=== PATIENT | male | born 1945 | race Caucasian/White ===

== ENCOUNTER 2016-10-09 09:37 | Outpatient (CLI) | payer MEDICARE, BC | END 2016-10-09 09:38 | disposition home or self-care (01) | DX: I10 Essential (primary) hypertension (principal); R97.20 Elevated prostate specific antigen [PSA]; F32.9 Major depressive disorder, single episode, unspecified; Z79.899 Other long term (current) drug therapy; E78.2 Mixed hyperlipidemia ==

== ENCOUNTER 2016-11-06 08:12 | Outpatient (CLI) | payer MEDICARE, BC ==
[2016-11-06] MEDS ORDERED: IOPAMIDOL-300 50 ML VIAL PO ONE (09:48)
[2016-11-06] MEDS ORDERED: IOPAMIDOL-300 100 ML VIAL IVP ONE (09:48)
--- NOTE | 2016-11-06 19:43 | CT Report ---
CONTRAST-ENHANCED CT OF THE ABDOMEN AND PELVIS: 11/06/2016 CLINICAL HISTORY: Acquired cyst of the kidney. COMPARISON: 06/03/2015 TECHNIQUE: Contrast-enhanced CT exam of the abdomen and pelvis was done; Isovue -300 was utilized as a contrast agent. No oral contrast was utilized. FINDINGS: Lower lung valdez demonstrate some mild atelectasis in the right middle lobe. Small hiatal hernia is seen in the inferior mediastinum. Liver demonstrates a 3.5 cm benign cyst in the lateral posterior aspect of the right lobe. This lesion has CT numbers of 18.5. It is reduced in size as compared to preceding exam. A second benign cyst is noted in the anterior aspect of the left lobe of the liver measuring 2.4 cm in diameter, having CT numbers of 7. This is unchanged as compared to preceding exam. Spleen appears normal. Pancreas appears normal. Gallbladder shows no wall thickening. Common hepatic and common bile ducts appear normal. Adrenal glands are normal. A well-circumscribed cystic lesion with slightly thickened ibarra is once again seen extending from the upper pole of the left kidney. It measures 1.9 cm. It appears slightly increased by 0.4 cm since preceding exam dated 06/03/2015. Its CT number on contrast-enhanced study is 29. There are two smaller hypodense lesions within the left kidney. These are more evident on today's exam because of the contrast-enhanced study. They probably represent benign cysts. Right kidney demonstrates a 2.1 cm by 2 cm slightly hypodense mass extending from the lateral aspect of the mid portion of this kidney. This finding is not significantly changed in size as compared to preceding exam. It may represent a hyperdense cyst. There is a septated cyst extending from the inferior pole of the right kidney measuring 2.6 cm by 3 cm. This finding is not significantly changed as compared to preceding exam. The pyelocalyceal systems and ureters remain unchanged. Bladder shows no intrinsic abnormality. Patient's prostate is significantly enlarged. The prostate produces a prominent indentation on the inferior aspect of the bladder. It also elevates the base of the bladder. Prostate on today's exam measures 6.8 cm by 6.8 cm by 7.3 cm. Its size is not significantly changed as compared to preceding exam. Periaortic and pericaval region showed no significant adenopathy. Surgical clip is seen along the medial aspect of the cecum related to prior appendectomy. Large cystic structure is seen in the posterior subcutaneous soft tissues within the midline. This measures 4.3 cm by 5.6 cm. It does not communicate with the spine. It is unchanged as compared to preceding exam and has CT numbers of 2.3. IMPRESSION: 1. NO SIGNIFICANT CHANGE IS NOTED COMPARED TO 06/03/2015. 2. SMALL HIATAL HERNIA IS NOTED. 3. TWO BENIGN LIVER CYSTS ARE SEEN, ONCE AGAIN. THEY MEASURE 3.5 CM AND 2.2 CM , RESPECTIVELY. 4. RIGHT KIDNEY ONCE AGAIN DEMONSTRATES A 2 CM BY 2.2 CM PROBABLE HYPERDENSE CYST EXTENDING FROM ITS LATERAL ASPECT. THERE IS ALSO A SEPTATED CYST EXTENDING FROM ITS INFERIOR ASPECT MEASURING 3 CM BY 2.6 CM. THESE LESIONS SHOW NO CHANGE. THEY MOST LIKELY ARE OF BENIGN ETIOLOGY. RECOMMEND THEY CONTINUE TO BE FOLLOWED WITH A NONCONTRAST, CONTRAST-ENHANCED CT EXAM OF THE URINARY TRACT IN 1 YEAR TO FURTHER CONFIRM THIS BENIGN ETIOLOGY. 5. SEVERAL SMALL HYPODENSE LESIONS ARE ONCE AGAIN NOTED IN THE LEFT KIDNEY. THE LARGEST OF THESE MEASURES 2 CM IN DIAMETER AND EXTENDS FROM ITS UPPER POLE. THIS LESION CONTINUES TO SHOW A MILDLY THICKENED WALL. IT MAY REPRESENT A BENIGN CYST BUT RECOMMEND NONCONTRAST, CONTRAST-ENHANCED CT EXAM OF THE URINARY TRACT IN 1 YEAR TO FURTHER CONFIRM THIS BENIGN ETIOLOGY. 6. A 5.6 CM BY 4.3 CM BENIGN CYSTIC STRUCTURE IS ONCE AGAIN NOTED IN THE POSTERIOR SUBCUTANEOUS SOFT TISSUES WITHIN THE MIDLINE. THIS CYSTIC STRUCTURE DOES NOT COMMUNICATE WITH THE SPINE. In accordance with CT protocol optimization, one or more of the following dose reduction techniques were utilized for this exam: automated exposure control, adjustment of mA and/or KV based on patient size, or use of iterative reconstructive technique. JOB #: [id number] EXT JOB #: [id number] JOSE LUIS
== END 2016-11-06 08:13 | disposition home or self-care (01) ==
LOC: DI 08:12
PROVIDERS: ATTEND Physician Assistant Medical
DX: K76.89 Other specified diseases of liver (principal); N28.9 Disorder of kidney and ureter, unspecified; K44.9 Diaphragmatic hernia without obstruction or gangrene; Z90.89 Acquired absence of other organs
CPT/HCPCS: 74177; Q9967

== ENCOUNTER 2016-11-13 11:17 | Outpatient (CLI) | payer MEDICARE, BC ==
--- NOTE | 2016-11-13 14:08 | Ultrasound Report ---
RENAL ULTRASOUND: 11/13/2016 CLINICAL INDICATION: Cyst. COMPARISON: CT 11/06/2016. TECHNIQUE: Real-time scanning was performed with accounting representative static images obtained. FINDINGS: The right kidney measures 12.1 x 6.3 x 5.4 cm. Resistive indices vary from 0.65 to 0.97. Cortical cysts are noted. No solid renal mass is seen. N hydronephrosis is present. The left kidney measures 12.4 x 5.6 x 5.2 cm. Resistive indices vary from 0.70 to 0.73. Cortical cy sts are noted, measuring up to 2.4 cm. No solid renal lesion is seen. No hydronephrosis. Pre void, the bladder measures 9.3 x 8.3 x 5.9 cm, yielding a prevoid volume of 240 mL. Postvoid res idual is 50 mL. Bilateral ureteral jets are seen. The bladder wall appears normal. IMPRESSION: 1. BILATERAL RENAL CYSTS. NO SOLID RENAL LESION OR HYDRONEPHROSIS. 2. A 50 ML POSTVOID RESIDUAL. JOB #: [id number] EXT JOB #:[id number]
== END 2016-11-13 11:18 | disposition home or self-care (01) ==
LOC: DI 11:17
PROVIDERS: ATTEND Physician Assistant Medical
DX: R10.31 Right lower quadrant pain (principal); Z90.89 Acquired absence of other organs; Q61.02 Congenital multiple renal cysts
CPT/HCPCS: 76770

== ENCOUNTER 2017-02-06 09:17 | Outpatient (CLI) | payer MEDICARE, BC ==
[2017-02-06 09:47] LABS: BASOPHILS % (AUTO) 0.6 %; EOSINOPHILS # (AUTO) 0.3 10^3/uL (0.0-0.7); EOSINOPHILS % (AUTO) 4.8 %; HCT - HEMATOCRIT 40.4 % (42.0-52.0); HGB - HEMOGLOBIN 13.8 g/dL (14.0-18.0); LYMPHOCYTES # (AUTO) 1.7 10^3/uL (1.5-3.5); LYMPHOCYTES % (AUTO) 29.1 %; MEAN CORPUSCULAR HEMOGLOBIN 26.6 pg (27.0-31.0); MEAN CORPUSCULAR HGB CONC 34.1 g/dL (32.0-36.0); MEAN CORPUSCULAR VOLUME 77.9 fL (80.0-94.0); MEAN PLATELET VOLUME 7.3 fL (7.4-11.4); MONOCYTES # (AUTO) 0.4 10^3/uL (0.0-1.0); MONOCYTES % (AUTO) 6.9 %; NEUTROPHILS # (AUTO) 3.5 10^3/uL (1.5-6.6); NEUTROPHILS % (AUTO) 58.6 %; NUCLEATED RED BLOOD CELLS AUTO 0.1 /100WBC; RED BLOOD COUNT 5.19 10^6/uL (4.70-6.10); RED CELL DISTRIBUTION WIDTH 15.1 % (12.0-15.0); UNCORRECTED WHITE BLOOD COUNT 5.9 x10^3/uL; WHITE BLOOD COUNT 5.9 x10^3/uL (4.8-10.8)
[2017-02-06 10:09] LABS: CHOL/HDL RATIO 4.2 (<5.0); CHOLESTEROL 167 mg/dL; GLUCOSE,FASTING 109 mg/dL (70-100); HDL CHOLESTEROL 40 mg/dL; HEMOGLOBIN A1C 0.59 g/dL; LDL/HDL RATIO 2.2 (<3.6); TRIGLYCERIDES 188 mg/dL; VLDL CHOLESTEROL 38 mg/dL
== END 2017-02-06 09:18 | disposition home or self-care (01) ==
LOC: LAB 09:17
PROVIDERS: ATTEND Internal Medicine
DX: E78.2 Mixed hyperlipidemia (principal); Z72.89 Other problems related to lifestyle; R73.9 Hyperglycemia, unspecified; D64.9 Anemia, unspecified; Z79.899 Other long term (current) drug therapy; E55.9 Vitamin D deficiency, unspecified
CPT/HCPCS: 36415; 80061; 82306; 82728; 82947; 83036; 85025; 86803

== ENCOUNTER 2017-08-14 11:27 | Outpatient (CLI) | payer MEDICARE, BC | END 2017-08-14 11:28 | disposition home or self-care (01) | LOC: SC 11:27 | PROVIDERS: ADMIT Orthopaedic Surgery; ATTEND Nurse Practitioner Family | DX: G47.33 Obstructive sleep apnea (adult) (pediatric) (principal) | CPT/HCPCS: 99214; G0463; 99212 ==

== ENCOUNTER 2017-10-17 08:00 | Outpatient (CLI) | payer MEDICARE, BC ==
[2017-10-17 14:01] LABS: ALBUMIN 4.6 g/dL (3.2-5.5); ALBUMIN/GLOBULIN RATIO 1.8 (1.0-2.2); ALKALINE PHOSPHATASE 36 IU/L (42-121); ALT ALANINE AMINOTRANSFERASE 22 IU/L (10-60); AST ASPARTATE AMINOTRANSFERASE 21 IU/L (10-42); BILIRUBIN,TOTAL 0.5 mg/dL (0.2-1.0); BUN - BLOOD UREA NITROGEN 22 mg/dL (6-20); CALCIUM 9.2 mg/dL (8.5-10.3); CARBON DIOXIDE - CO2 26 mmol/L (21-32); CHLORIDE 104 mmol/L (101-111); CHOL/HDL RATIO 4.4 (<5.0); CHOLESTEROL 172 mg/dL; CREATININE 0.9 mg/dL (0.6-1.2); GFR - MDRD 83 (>89); GLUCOSE 99 mg/dL (70-100); HDL CHOLESTEROL 39 mg/dL; LDL CHOLESTEROL,CALCULATED 98 mg/dL; LDL/HDL RATIO 2.5 (<3.6); SODIUM 137 mmol/L (135-145); TOTAL PROTEIN 7.2 g/dL (6.7-8.2); VLDL CHOLESTEROL 35 mg/dL
[2017-10-17 15:31] LABS: THYROID STIMULATING HORMONE 1.92 uIU/mL (0.34-5.60)
== END 2017-10-17 08:01 | disposition home or self-care (01) ==
LOC: LAB.R 08:00
PROVIDERS: ATTEND Physician Assistant Medical
DX: R41.89 Other symptoms and signs involving cognitive functions and awareness (principal); F32.9 Major depressive disorder, single episode, unspecified; D64.9 Anemia, unspecified; I10 Essential (primary) hypertension; E78.4 Other hyperlipidemia; Z79.899 Other long term (current) drug therapy
CPT/HCPCS: 80053; 80061; 82306; 82607; 82728; 83721; 84443

== ENCOUNTER 2017-10-22 09:40 | Outpatient (CLI) | payer MEDICARE, BC ==
[2017-10-22 10:06] LABS: BASOPHILS % (AUTO) 0.5 %; EOSINOPHILS # (AUTO) 0.2 10^3/uL (0.0-0.7); EOSINOPHILS % (AUTO) 3.9 %; HGB - HEMOGLOBIN 13.9 g/dL (14.0-18.0); LYMPHOCYTES # (AUTO) 1.7 10^3/uL (1.5-3.5); LYMPHOCYTES % (AUTO) 27.3 %; MEAN CORPUSCULAR HEMOGLOBIN 27.1 pg (27.0-31.0); MEAN CORPUSCULAR HGB CONC 34.1 g/dL (32.0-36.0); MEAN CORPUSCULAR VOLUME 79.3 fL (80.0-94.0); MEAN PLATELET VOLUME 7.5 fL (7.4-11.4); MONOCYTES # (AUTO) 0.5 10^3/uL (0.0-1.0); NEUTROPHILS # (AUTO) 3.7 10^3/uL (1.5-6.6); NEUTROPHILS % (AUTO) 60.3 %; PLT - PLATELET COUNT 189 10^3/uL (130-450); RED BLOOD COUNT 5.15 10^6/uL (4.70-6.10); RED CELL DISTRIBUTION WIDTH 15.1 % (12.0-15.0); WHITE BLOOD COUNT 6.1 x10^3/uL (4.8-10.8)
[2017-10-22 10:24] LABS: HB2 TOTAL 15.6 g/dL; HEMOGLOBIN A1C 0.58 g/dL; HEMOGLOBIN A1C % 5.6 % (4.6-6.2)
== END 2017-10-22 09:41 | disposition home or self-care (01) ==
LOC: LAB 09:40
PROVIDERS: ATTEND Physician Assistant Medical
DX: D64.9 Anemia, unspecified (principal); R73.9 Hyperglycemia, unspecified; Z79.899 Other long term (current) drug therapy
CPT/HCPCS: 36415; 83036; 85025

== ENCOUNTER 2017-10-28 09:50 | Outpatient (CLI) | payer MEDICARE, BC ==
[2017-10-28 12:57] LABS: MEAN RETIC VALUE 93.4; RED BLOOD COUNT 5.07 10^6/uL (4.70-6.10)
[2017-10-28 13:29] LABS: FERRITIN 39.8 ng/mL (23.9-336.2)
== END 2017-10-28 09:51 | disposition home or self-care (01) ==
LOC: LAB.R 09:50
PROVIDERS: ATTEND Physician Assistant Medical
DX: D64.9 Anemia, unspecified (principal)
CPT/HCPCS: 82607; 82728; 83010; 85044; 86880

== ENCOUNTER 2018-02-18 15:32 | Outpatient (CLI) | payer MEDICARE, BC ==
[2018-02-18 16:00] LABS: BASOPHILS % (AUTO) 0.5 %; EOSINOPHILS # (AUTO) 0.2 10^3/uL (0.0-0.7); HGB - HEMOGLOBIN 13.8 g/dL (14.0-18.0); LYMPHOCYTES # (AUTO) 1.7 10^3/uL (1.5-3.5); LYMPHOCYTES % (AUTO) 23.8 %; MEAN CORPUSCULAR HEMOGLOBIN 27.9 pg (27.0-31.0); MEAN CORPUSCULAR HGB CONC 34.8 g/dL (32.0-36.0); MEAN CORPUSCULAR VOLUME 80.1 fL (80.0-94.0); MEAN PLATELET VOLUME 7.5 fL (7.4-11.4); MONOCYTES # (AUTO) 0.5 10^3/uL (0.0-1.0); MONOCYTES % (AUTO) 7.4 %; NEUTROPHILS # (AUTO) 4.8 10^3/uL (1.5-6.6); NEUTROPHILS % (AUTO) 65.3 %; PLT - PLATELET COUNT 210 10^3/uL (130-450); RED BLOOD COUNT 4.97 10^6/uL (4.70-6.10); RED CELL DISTRIBUTION WIDTH 15.1 % (12.0-15.0); WHITE BLOOD COUNT 7.3 x10^3/uL (4.8-10.8)
== END 2018-02-18 15:33 | disposition home or self-care (01) ==
LOC: LAB 15:32
PROVIDERS: ATTEND Physician Assistant Medical
DX: D64.9 Anemia, unspecified (principal)
CPT/HCPCS: 36415; 85025

== ENCOUNTER 2018-03-17 08:00 | Outpatient (CLI) | payer MEDICARE, BC ==
[2018-03-17 19:26] LABS: BASOPHILS % (AUTO) 0.4 %; EOSINOPHILS # (AUTO) 0.2 10^3/uL (0.0-0.7); EOSINOPHILS % (AUTO) 2.9 %; HGB - HEMOGLOBIN 14.9 g/dL (14.0-18.0); LYMPHOCYTES # (AUTO) 1.8 10^3/uL (1.5-3.5); LYMPHOCYTES % (AUTO) 24.7 %; MEAN CORPUSCULAR HEMOGLOBIN 28.1 pg (27.0-31.0); MEAN CORPUSCULAR HGB CONC 35.3 g/dL (32.0-36.0); MEAN CORPUSCULAR VOLUME 79.5 fL (80.0-94.0); MONOCYTES # (AUTO) 0.5 10^3/uL (0.0-1.0); MONOCYTES % (AUTO) 7.6 %; NEUTROPHILS # (AUTO) 4.6 10^3/uL (1.5-6.6); NEUTROPHILS % (AUTO) 64.4 %; PLT - PLATELET COUNT 232 10^3/uL (130-450); RED BLOOD COUNT 5.32 10^6/uL (4.70-6.10); RED CELL DISTRIBUTION WIDTH 14.7 % (12.0-15.0); WHITE BLOOD COUNT 7.1 x10^3/uL (4.8-10.8)
[2018-03-17 19:31] LABS: PT - PROTHROMBIN TIME 11.6 secs (9.9-12.6)
[2018-03-17 20:00] LABS: ALBUMIN 4.6 g/dL (3.2-5.5); ALBUMIN/GLOBULIN RATIO 1.5 (1.0-2.2); BILIRUBIN,TOTAL 0.6 mg/dL (0.2-1.0); CALCIUM 9.8 mg/dL (8.5-10.3); TOTAL PROTEIN 7.7 g/dL (6.7-8.2)
== END 2018-03-17 08:01 | disposition home or self-care (01) ==
LOC: LAB.R 08:00
PROVIDERS: ATTEND Nurse Practitioner Primary Care
DX: Z76.89 Persons encountering health services in other specified circumstances (principal); I48.91 Unspecified atrial fibrillation
CPT/HCPCS: 80053; 84443; 85025; 85610

== ENCOUNTER 2018-03-18 12:41 | Outpatient (CLI) | payer MEDICARE, BC | END 2018-03-18 12:42 | disposition home or self-care (01) | LOC: DI 12:41 | PROVIDERS: ATTEND Nurse Practitioner Primary Care | DX: I48.91 Unspecified atrial fibrillation (principal) | CPT/HCPCS: 93306 ==

== ENCOUNTER 2018-05-11 09:25 | Outpatient (CLI) | payer MEDICARE, BC ==
--- NOTE | 2018-05-11 14:55 | Ultrasound Report ---
Reason: LT AXILLARY PAIN, LYMPHADENOPATHY Procedure Date: 05/11/2018 Accession Number: [id number] / [id number] Procedure: US - Axilla CPT Code: FULL RESULT: EXAM: LEFT UPPER EXTREMITY ULTRASOUND - LIMITED EXAM DATE: 05/11/2018 09:36 AM. CLINICAL HISTORY: LT AXILLARY PAIN, LYMPHADENOPATHY. COMPARISON: None. TECHNIQUE: Real-time scanning was performed with static images obtained. Region of interest: Left axilla. FINDINGS: In the left axilla in the region of the reported clinical abnormality, there are masses measuring 4.4 x 3.7 x 1.5 cm and 2.4 x 1.7 x 1.3 cm, may represent lymph nodes with replacement of the normal fatty hilar architecture. IMPRESSION: Probable enlarged, abnormal left axillary lymph nodes, as described above. These could be secondary to infection. Neoplasia (lymphoma, metastasis) is not excluded. RADIA
== END 2018-05-11 09:26 | disposition home or self-care (01) ==
LOC: DI 09:25
PROVIDERS: ATTEND Physician Assistant Medical
DX: R59.0 Localized enlarged lymph nodes (principal)
CPT/HCPCS: 76882

== ENCOUNTER 2018-05-12 09:22 | Outpatient (CLI) | payer MEDICARE, BC ==
--- NOTE | 2018-05-12 11:59 | Ultrasound Report ---
Reason: ANTICOAGULATION MANAGEMENT,ATRIAL FIBRILLATION,BOD Procedure Date: 05/12/2018 Accession Number: [id number] / [id number] Procedure: US - Retroperitoneal CPT Code: FULL RESULT: EXAM: RENAL ULTRASOUND EXAM DATE: 05/12/2018 11:05 AM. CLINICAL HISTORY: Anticoagulation management, atrial fibrillation, BOD. COMPARISON: RETROPERITONEAL 11/13/2016 11:20 AM. TECHNIQUE: Real-time scanning was performed with static images obtained. FINDINGS: Right Kidney: 12.6 cm. The right inferior pole complex cyst measuring up to 3.1 cm demonstrates vascularity on color Doppler, suspicious. Additional complex cyst measuring up to 2.8 and 1.4 cm in the superior pole of the right kidney did not demonstrate definite solid component or vascularity. No hydronephrosis. No calculi. Left Kidney: 12.3 cm. A total of 3 septated cyst without definite solid mass component or vascularity by color Doppler is seen measuring up to 2.3, 1.7 and 1.5 cm respectively are noted. Bladder: Bilateral jets seen. The prevoid bladder volume was 366 cc. The postvoid bladder volume was 151 cc. Other: None. IMPRESSION: Definitive characterization by CT multiphase renal mass protocol is recommended given suspicious findings in the inferior pole right renal cyst. RADIA
== END 2018-05-12 09:23 | disposition home or self-care (01) ==
LOC: DI 09:22
PROVIDERS: ATTEND Nurse Practitioner Primary Care
DX: N28.1 Cyst of kidney, acquired (principal)
CPT/HCPCS: 76770

== ENCOUNTER 2018-05-20 15:07 | Outpatient (CLI) | payer MEDICARE, BC ==
[2018-05-20 15:35] LABS: ALBUMIN 4.8 g/dL (3.2-5.5); ALBUMIN/GLOBULIN RATIO 1.4 (1.0-2.2); CALCIUM 9.9 mg/dL (8.5-10.3); CREATININE 1.1 mg/dL (0.6-1.2); TOTAL PROTEIN 8.2 g/dL (6.7-8.2)
== END 2018-05-20 15:08 | disposition home or self-care (01) ==
LOC: LAB 15:07
PROVIDERS: ATTEND Urology
DX: N28.1 Cyst of kidney, acquired (principal)
CPT/HCPCS: 36415; 80053

== ENCOUNTER 2018-06-03 11:56 | Outpatient (CLI) | payer MEDICARE, BC | END 2018-06-03 11:57 | disposition home or self-care (01) | LOC: LAB 11:56 | PROVIDERS: ATTEND Nurse Practitioner Primary Care | DX: Z76.89 Persons encountering health services in other specified circumstances (principal); Z79.01 Long term (current) use of anticoagulants | CPT/HCPCS: 85610 ==

== ENCOUNTER 2018-06-12 12:28 | Outpatient (CLI) | payer MEDICARE, BC | END 2018-06-12 12:29 | disposition home or self-care (01) | LOC: LAB 12:28 | PROVIDERS: ATTEND Nurse Practitioner Primary Care | DX: Z76.89 Persons encountering health services in other specified circumstances (principal); Z79.01 Long term (current) use of anticoagulants | CPT/HCPCS: 85610 ==

== ENCOUNTER 2018-07-09 16:14 | Outpatient (CLI) | payer MEDICARE, BC | END 2018-07-09 16:15 | disposition home or self-care (01) | LOC: LAB 16:14 | PROVIDERS: ATTEND Nurse Practitioner Primary Care | DX: Z76.89 Persons encountering health services in other specified circumstances (principal); Z79.01 Long term (current) use of anticoagulants | CPT/HCPCS: 85610 ==

== ENCOUNTER 2018-07-24 12:16 | Outpatient (CLI) | payer MEDICARE, BC | END 2018-07-24 12:17 | disposition home or self-care (01) | LOC: LAB 12:16 | PROVIDERS: ATTEND Nurse Practitioner Primary Care | DX: Z79.01 Long term (current) use of anticoagulants (principal); Z76.89 Persons encountering health services in other specified circumstances | CPT/HCPCS: 85610 ==

== ENCOUNTER 2018-09-09 19:16 | Outpatient (CLI) | payer MEDICARE, BC | END 2018-09-09 19:17 | disposition home or self-care (01) | LOC: LAB 19:16 | PROVIDERS: ATTEND Internal Medicine | DX: Z79.01 Long term (current) use of anticoagulants (principal); I48.91 Unspecified atrial fibrillation | CPT/HCPCS: 85610 ==

== ENCOUNTER 2018-10-08 13:06 | Outpatient (CLI) | payer MEDICARE, BC | END 2018-10-08 13:07 | disposition home or self-care (01) | LOC: LAB 13:06 | PROVIDERS: ATTEND Internal Medicine | DX: I48.91 Unspecified atrial fibrillation (principal); Z79.01 Long term (current) use of anticoagulants | CPT/HCPCS: 85610 ==

== ENCOUNTER 2018-10-17 22:43 | Emergency (ER) | payer MEDICARE, BC ==
[2018-10-17] MEDS ORDERED: CHERRY SYRUP 10 ML UDC PO ONE (23:48)
[2018-10-17] MEDS ORDERED: AMOX/CLAV 875 MG/125 MG TABLET PO STA (23:48)
[2018-10-17] MEDS ORDERED: DEXAMETHASONE 10 MG/ML VIAL PO STA (23:48)
--- NOTE | 2018-10-17 23:49 | ED Physician Documentation ---
PD HPI HEENT - Stated complaint Stated Complaint: SINUS CONGESTION - Chief complaint Chief Complaint: Resp - History obtained from History obtained from: Patient - History of Present Illness Timing - onset: How many days ago (4) Timing - duration: Days (4) Timing - details: Gradual onset, Still present Location: Sinuses, Nose Improves: Medication Associated symptoms: Congestion, Rhinorrhea Similar symptoms before: Diagnosis (sinusitis) Recently seen: Not recently seen - Additional information Additional information: Previously well 73-year-old male has developed some sinus congestion and he felt this was just a cold and he used some saline to clear out his nasal passages and this just seemed to keep getting worse and worse. He is now developed enough congestion in his nasal passages that he is not able to breathe through his nose at all. He is having to mouth breathe and he uses a CPAP mask at night. This did give him a little bit of a panic feeling. He denies any specific cough and states that he does not usually get much in the way of pollen allergies and nothing like this ever. Review of Systems Constitutional: denies: Fever Eyes: denies: Decreased vision Ears: denies: Ear pain Nose: reports: Rhinorrhea / runny nose, Congestion, Sinus pressure / pain Throat: denies: Sore throat Cardiac: denies: Chest pain / pressure, Palpitations Respiratory: denies: Dyspnea, Cough GI: denies: Vomiting PD PAST MEDICAL HISTORY - Past Medical History Past Medical History: Yes Cardiovascular: Hypertension Respiratory: Sleep apnea, CPAP use Endocrine/Autoimmune: None GI: Ulcers : Other HEENT: None Psych: Depression, Claustrophobia Musculoskeletal: None Derm: None - Past Surgical History Past Surgical History: Yes General: Colonoscopy Ortho: ACL reconstruction HEENT: Tonsil/Adenoidectomy - Present Medications Home Medications: Ambulatory Orders Medication Instructions Recorded Confirmed Aspirin 325 mg PO BID 04/20/13 06/03/15 Potassium Chloride [K-Dur] 30 meq PO QAM 04/20/13 06/03/15 Pravastatin Sodium 10 mg PO HS 04/20/13 06/03/15 Valsartan/Hydrochlorothiazide 1 each PO QAM 04/20/13 06/03/15 [Diovan Hct 320-12.5 mg Tab] amLODIPine [Norvasc] 10 mg PO HS 04/20/13 06/03/15 Metoprolol Succinate 25 mg ORAL DAILY 05/20/13 06/03/15 Tamsulosin [Flomax] 06/03/15 06/03/15 Meclizine HCl [Bonine] 25 mg PO Q6H PRN #15 tab.chew 05/01/16 Ondansetron HCl [Zofran] 4 mg PO Q6H PRN #10 tablet 05/01/16 Amox/Clav 875/125 [Augmentin] 1 each PO Q12H #20 tablet 10/17/18 - Allergies Allergies/Adverse Reactions: Allergies Allergy/AdvReac Type Severity Reaction Status Date / Time benazepril Allergy unknown Verified 04/07/14 09:40 nefazodone [Nefazodone] Allergy unknown Verified 04/07/14 09:40 spironolactone Allergy unknown Verified 04/07/14 09:40 terazosin [Terazosin] Allergy unknown Verified 04/07/14 09:40 codeine [Codeine] AdvReac Nausea Verified 04/07/14 09:40 - Social History Does the pt smoke?: No Smoking Status: Never smoker Does the pt drink ETOH?: No Does the pt have substance abuse?: No - Immunizations Immunizations are current?: Yes - POLST Patient has POLST: No PD ED PE NORMAL - Vitals Vital signs reviewed: Yes (hypertensive ) - General General: Alert and oriented X 3, No acute distress, Well developed/nourished, Other (mouth breathing with obvious nasal congestion to the voice.) - HEENT HEENT: Atraumatic, PERRL, EOMI, Other (both TM's are markedly inflamed with indistinct landmarks. There is bilateral maxillary sinus point tenderness worse on the left. ) - Neck Neck: Supple, no meningeal sign, No bony TTP - Cardiac Cardiac: RRR, No murmur - Respiratory Respiratory: No respiratory distress, Clear bilaterally - Abdomen Abdomen: Soft, Non tender - Back Back: No CVA TTP, No spinal TTP - Derm Derm: Normal color, Warm and dry, No rash - Extremities Extremities: No deformity, No edema - Neuro Neuro: Alert and oriented X 3, perfect bind machine operator 2-12 intact, No motor deficit, No sensory deficit, Normal speech Eye Opening: Spontaneous Motor: Obeys Commands Verbal: Oriented GCS Score: 15 - Psych Psych: Normal mood, Normal affect Results - Vitals Vitals: Vital Signs - 24 hr 05/03/19 22:52 Temperature 36.8 C Heart Rate 65 Respiratory 16 Rate Blood Pressure 154/81 H O2 Saturation 97 Oxygen O2 Source Room air PD MEDICAL DECISION MAKING - ED course Complexity details: reviewed results, re-evaluated patient, considered differential, d/w patient ED course: 73-year-old male with maxillary sinusitis and otitis media has significant nasal congestion and he is administered dexamethasone 10 mg orally we will place him on some Augmentin I discussed with him sinus hygiene and expectations of the treatment. Departure - Departure Disposition: Home, Self Care Clinical Impression: Sinusitis Qualifiers: Sinusitis location: maxillary Chronicity: acute Recurrence: non-recurrent Qualified Code(s): J01.00 - Acute maxillary sinusitis, unspecified Otitis media Qualifiers: Otitis media type: suppurative Chronicity: acute Laterality: bilateral Recurrence: non-recurrent Spontaneous tympanic membrane rupture: without spontaneous rupture Qualified Code(s): H66.003 - Acute suppurative otitis media without spontaneous rupture of ear drum, bilateral Condition: Stable Instructions: ED Sinusitis Abx Tx, ED Otitis Media Acute Adult Follow-Up: Eben Moseley MD [Primary Care Provider] - Prescriptions: Amox/Clav 875/125 [Augmentin] 1 each PO Q12H #20 tablet
[2018-10-18 00:05] VITALS: BP 140/80
== END 2018-10-18 00:04 | disposition home or self-care (01) ==
LOC: ED 22:43
DX: J01.00 Acute maxillary sinusitis, unspecified (principal); H66.003 Acute suppurative otitis media without spontaneous rupture of ear drum, bilateral; I10 Essential (primary) hypertension; Z79.82 Long term (current) use of aspirin
CPT/HCPCS: 99283; A9270

== ENCOUNTER 2018-10-24 12:21 | Outpatient (CLI) | payer MEDICARE, BC | END 2018-10-24 12:22 | disposition home or self-care (01) | LOC: LAB 12:21 | PROVIDERS: ATTEND Urology | DX: Z12.5 Encounter for screening for malignant neoplasm of prostate (principal) | CPT/HCPCS: 36415; G0103; 84153 ==

== ENCOUNTER 2018-11-09 08:10 | Outpatient (CLI) | payer MEDICARE, BC ==
--- NOTE | 2018-11-10 00:26 | Ultrasound Report ---
Reason: SCREENING FOR CARDIOVASCULAR CONDITION Procedure Date: 11/09/2018 Accession Number: [id number] / [id number] Procedure: US - Retroperitoneal Limited CPT Code: FULL RESULT: EXAM: AORTIC DOPPLER ULTRASOUND EXAM DATE: 11/09/2018 08:29 AM. CLINICAL HISTORY: Screening for cardiovascular condition. COMPARISON: RETROPERITONEAL 05/12/2018 9:42 AM,ABDOMEN/PELVIS W/ 11/06/2016 9:34 AM. TECHNIQUE: Real-time sonographic imaging of retroperitoneal vascular structures, including color-flow, Doppler flow and spectral analysis was performed by the banding machine operator. Multiple vendor representatives static images were saved for review. FINDINGS: Aorta: The abdominal aorta was adequately visualized. No evidence for abdominal aortic aneurysm. Aorta: Proxima: Sagittal AP 2.4 cm. Mid: Transverse 2.1 x 2.3 cm. Distal: Transverse 2.2 x 2.2 cm. Caliber: WNL: Yes. Plaque visualized: No. Iliacs: Right Iliac: Transverse 1.1 x 1.1 cm. Left Iliac: Transverse 1.1 x 1.1 cm. Iliac Vessels: The visualized proximal common iliac arteries are normal in caliber. Other: Study limited by bowel gas and body habitus. IMPRESSION: No abdominal aortic aneurysm. RADIA
== END 2018-11-09 08:11 | disposition home or self-care (01) ==
LOC: DI 08:10
PROVIDERS: ATTEND Nurse Practitioner
DX: Z13.6 Encounter for screening for cardiovascular disorders (principal)
CPT/HCPCS: 76775

== ENCOUNTER 2018-11-12 08:39 | Outpatient (CLI) | payer MEDICARE, BC ==
[2018-11-12 09:13] LABS: BASOPHILS % (AUTO) 0.2 %; HGB - HEMOGLOBIN 13.4 g/dL (14.0-18.0); LYMPHOCYTES # (AUTO) 1.1 10^3/uL (1.5-3.5); MEAN CORPUSCULAR HEMOGLOBIN 26.2 pg (27.0-31.0); MEAN CORPUSCULAR HGB CONC 33.5 g/dL (32.0-36.0); MEAN CORPUSCULAR VOLUME 78.2 fL (80.0-94.0); MEAN PLATELET VOLUME 7.5 fL (7.4-11.4); MONOCYTES # (AUTO) 0.5 10^3/uL (0.0-1.0); MONOCYTES % (AUTO) 4.9 %; NEUTROPHILS # (AUTO) 8.1 10^3/uL (1.5-6.6); NEUTROPHILS % (AUTO) 83.9 %; PLT - PLATELET COUNT 188 10^3/uL (130-450); RED BLOOD COUNT 5.11 10^6/uL (4.70-6.10); RED CELL DISTRIBUTION WIDTH 15.4 % (12.0-15.0); WHITE BLOOD COUNT 9.7 x10^3/uL (4.8-10.8)
[2018-11-12 09:31] LABS: ALBUMIN 4.4 g/dL (3.2-5.5); ALBUMIN/GLOBULIN RATIO 1.5 (1.0-2.2); ALKALINE PHOSPHATASE 37 IU/L (42-121); ALT ALANINE AMINOTRANSFERASE 17 IU/L (10-60); AST ASPARTATE AMINOTRANSFERASE 18 IU/L (10-42); BILIRUBIN,TOTAL 0.7 mg/dL (0.2-1.0); BUN - BLOOD UREA NITROGEN 30 mg/dL (6-20); CALCIUM 9.5 mg/dL (8.5-10.3); CARBON DIOXIDE - CO2 25 mmol/L (21-32); CHLORIDE 103 mmol/L (101-111); CHOL/HDL RATIO 3.8 (<5.0); CHOLESTEROL 177 mg/dL; CREATININE 0.9 mg/dL (0.6-1.2); GFR - MDRD 83 (>89); GLUCOSE 124 mg/dL (70-100); HDL CHOLESTEROL 46 mg/dL; LDL CHOLESTEROL,CALCULATED 117 mg/dL; LDL/HDL RATIO 2.5 (<3.6); SODIUM 139 mmol/L (135-145); TOTAL PROTEIN 7.4 g/dL (6.7-8.2); VLDL CHOLESTEROL 14 mg/dL
[2018-11-12 10:46] LABS: HB2 TOTAL 13.6 g/dL; HEMOGLOBIN A1C 0.56 g/dL; HEMOGLOBIN A1C % 5.9 % (4.6-6.2)
== END 2018-11-12 08:40 | disposition home or self-care (01) ==
LOC: LAB 08:39
PROVIDERS: ATTEND Nurse Practitioner
DX: I48.91 Unspecified atrial fibrillation (principal); R73.02 Impaired glucose tolerance (oral); I10 Essential (primary) hypertension
CPT/HCPCS: 36415; 80053; 80061; 83036; 83721; 84443; 85025

== ENCOUNTER 2018-12-10 09:13 | Outpatient (CLI) | payer MEDICARE, BC | END 2018-12-10 09:14 | disposition home or self-care (01) | LOC: SC 09:13 | PROVIDERS: ATTEND Nurse Practitioner Family | DX: G47.33 Obstructive sleep apnea (adult) (pediatric) (principal) | CPT/HCPCS: 99215; G0463; 99212 ==

== ENCOUNTER 2018-12-22 01:40 | Outpatient (CLI) | payer MEDICARE, BC | END 2018-12-22 01:41 | disposition critical access hospital (66) | LOC: EMS 01:40 | PROVIDERS: ATTEND Surgery | DX: R47.9 Unspecified speech disturbances (principal) | CPT/HCPCS: A0425; A0429 ==

== ENCOUNTER 2018-12-22 01:47 | Emergency (ER) | payer MEDICARE, BC ==
[2018-12-22 02:21] LABS: BASOPHILS % (AUTO) 0.2 %; EOSINOPHILS # (AUTO) 0.2 10^3/uL (0.0-0.7); EOSINOPHILS % (AUTO) 2.1 %; LYMPHOCYTES # (AUTO) 1.1 10^3/uL (1.5-3.5); LYMPHOCYTES % (AUTO) 11.8 %; MEAN CORPUSCULAR HEMOGLOBIN 26.4 pg (27.0-31.0); MEAN CORPUSCULAR HGB CONC 32.4 g/dL (32.0-36.0); MEAN CORPUSCULAR VOLUME 81.3 fL (80.0-94.0); MEAN PLATELET VOLUME 9.3 fL (7.4-11.4); MONOCYTES # (AUTO) 0.8 10^3/uL (0.0-1.0); NEUTROPHILS # (AUTO) 6.9 10^3/uL (1.5-6.6); NEUTROPHILS % (AUTO) 76.7 %; PLT - PLATELET COUNT 216 10^3/uL (130-450); RED BLOOD COUNT 4.55 10^6/uL (4.70-6.10)
[2018-12-22 02:34] LABS: ALBUMIN 4.1 g/dL (3.2-5.5); ALBUMIN/GLOBULIN RATIO 1.4 (1.0-2.2); BILIRUBIN,TOTAL 1.7 mg/dL (0.2-1.0); CALCIUM 9.1 mg/dL (8.5-10.3); CREATININE 1.1 mg/dL (0.6-1.2); TOTAL PROTEIN 7.1 g/dL (6.7-8.2)
--- NOTE | 2018-12-22 02:56 | CT Report ---
Reason: slurred speech 6 days S/P craniotomy for SDH. Procedure Date: 12/22/2018 Accession Number: [id number] / [id number] Procedure: CT - HEAD WO CPT Code: FULL RESULT: EXAM: CT HEAD EXAM DATE: 12/22/2018 02:37 AM. CLINICAL HISTORY: Slurred speech. 6 days S/P craniotomy for SDH. COMPARISON: No prior exams are available for comparison.. TECHNIQUE: Multiaxial CT images were obtained from the foramen magnum to the vertex. Reformats: Sagittal and coronal. IV contrast: None. In accordance with CT protocol optimization, one or more of the following dose reduction techniques were utilized for this exam: automated exposure control, adjustment of mA and/or KV based on patient size, or use of iterative reconstructive technique. FINDINGS: There is postsurgical change status post recent left frontoparietal craniotomy. There is no extra axial collection of hemorrhage and small volume of air underlying the craniotomy flap measuring 7-8 mm in maximum thickness. There is mild effacement of underlying cortical sulci. There is also a small subdural hematoma overlying the left parietal and occipital lobes measuring approximately 3 mm in maximum thickness. This causes no significant mass-effect. There is no other intracranial hemorrhage. There is no parenchymal hemorrhage. Moran-white matter differentiation appears distinct. There is no definite CT evidence of an acute infarct. There is no midline shift. Basal cisterns are patent. No hydrocephalus. A small fluid level is partially visualized in the right maxillary sinus. There is also partial opacification of the left frontal sinus and a few bilateral ethmoid air cells. Mastoid air cells are clear. Orbits are unremarkable. IMPRESSION: 1. There is postsurgical change status post recent left frontoparietal craniotomy. There is a collection of extra-axial hyperdense blood and small volume of air underlying the craniotomy flap measuring up to 7-8 mm in thickness. There is mild effacement of underlying cortical sulci. There is no midline shift. 2. There is a thin layer of subdural blood overlying the left parietal and occipital lobes measuring up to 3 mm in thickness. No significant associated mass-effect. 3. There is no evidence of parenchymal hemorrhage. There is also no CT evidence of an acute infarct. 4. No hydrocephalus. 5. Prior exams are not available for comparison. RADIA
--- NOTE | 2018-12-22 03:14 | ED Physician Documentation ---
PD HPI FOCAL NEURO - Stated complaint Stated Complaint: NEURO - Chief complaint Chief Complaint: Neuro - History obtained from History obtained from: Patient, EMS - History of Present Illness Timing - onset: Today Timing - details: Now resolved Severity of deficit: Mild Associated symptoms: Headache (low grade) Contributing factors: positive: Other (6 days status post craniotomy for a spontaneous subdural hematoma.) Baseline status: positive: A&OX3, ambulatory, indep Recently seen: Surgery (Craniotomy for subdural hematoma.) - Additional information Additional information: The patient is a 73-year-old male with history of hypertension and atrial fibrillation who presents with history of slurred speech that has now resolved. The patient is 6 days status post craniotomy for spontaneous subdural hematoma while on Coumadin. This occurred while in [place]. He returned home by airplane yesterday. At the time of discharge from the hospital in [place] he was instructed that if he developed slurred speech or difficulty with speech he should seek medical attention. The slurred speech he experienced earlier tonight was transient, and resolved before medics arrived. He is currently asymptomatic except for low-grade headache which he has had since the surgery. Of course he is no longer on Coumadin. Review of Systems Constitutional: denies: Fever Eyes: denies: Decreased vision Ears: denies: Tinnitus/ringing Nose: denies: Congestion Throat: denies: Sore throat Cardiac: denies: Chest pain / pressure Respiratory: denies: Dyspnea, Cough GI: denies: Abdominal Pain, Nausea, Vomiting : denies: Dysuria Skin: denies: Rash Musculoskeletal: denies: Neck pain Neurologic: reports: Difficulty speaking (Currently resolved.), Headache (Low- grade.). denies: Focal weakness, Numbness, Altered mental status PD PAST MEDICAL HISTORY - Past Medical History Past Medical History: Yes Cardiovascular: Hypertension, High cholesterol, Atrial fibrillation Respiratory: Sleep apnea, CPAP use Neuro: Other (Spontaneous subdural hematoma.) Endocrine/Autoimmune: None GI: Ulcers : Benign prostate hypertrophy, Other HEENT: None Psych: Depression, Claustrophobia Musculoskeletal: None Derm: None - Past Surgical History Past Surgical History: Yes General: Colonoscopy Ortho: ACL reconstruction Neuro: Craniotomy HEENT: Tonsil/Adenoidectomy - Present Medications Home Medications: Ambulatory Orders Medication Instructions Recorded Confirmed Potassium Chloride [K-Dur] 30 meq PO QAM 04/20/13 12/22/18 Pravastatin Sodium 10 mg PO HS 04/20/13 12/22/18 amLODIPine [Norvasc] 10 mg PO HS 04/20/13 12/22/18 Metoprolol Succinate 50 mg ORAL DAILY 05/20/13 12/22/18 Tamsulosin [Flomax] 0.8 mg PO DAILY 06/03/15 12/22/18 Ondansetron HCl [Zofran] 4 mg PO Q6H PRN #10 tablet 05/01/16 12/22/18 Hydrochlorothiazide 12.5 mg PO DAILY 12/22/18 12/22/18 Irbesartan 300 mg PO DAILY 12/22/18 12/22/18 traMADol [Ultram] 50 mg PO Q4-6H PRN 12/22/18 12/22/18 - Allergies Allergies/Adverse Reactions: Allergies Allergy/AdvReac Type Severity Reaction Status Date / Time benazepril Allergy unknown Verified 12/22/18 01:53 nefazodone [Nefazodone] Allergy unknown Verified 12/22/18 01:53 spironolactone Allergy unknown Verified 12/22/18 01:53 terazosin [Terazosin] Allergy unknown Verified 12/22/18 01:53 codeine [Codeine] AdvReac Nausea Verified 12/22/18 01:53 - Social History Does the pt smoke?: No Smoking Status: Never smoker Does the pt drink ETOH?: No Does the pt have substance abuse?: No - Immunizations Immunizations are current?: Yes - POLST Patient has POLST: No PD ED PE NORMAL - Vitals Vital signs reviewed: Yes (normal) - General General: Alert and oriented X 3, Well developed/nourished - HEENT HEENT: PERRL, EOMI, Pharynx benign, Other (Craniotomy surgical sites intact, without hemorrhage or evidence of infection.) - Neck Neck: Supple, no meningeal sign, No adenopathy, No JVD - Cardiac Cardiac: RRR - Respiratory Respiratory: No respiratory distress, Clear bilaterally - Abdomen Abdomen: Soft, Non tender - Back Back: No CVA TTP - Derm Derm: No rash - Extremities Extremities: No edema, No calf tenderness / cord - Neuro Neuro: Alert and oriented X 3, termite inspector 2-12 intact, No motor deficit, No sensory deficit, Normal speech Eye Opening: Spontaneous Motor: Obeys Commands Verbal: Oriented GCS Score: 15 NIHSS - Time Time: 01:50 - Level of Consciousness Level of consciousness: (0) Alert, Keenly responsive LOC Questions: (0) Answers both Q's correct LOC Commands: (0) Performs both correctly - Gaze Best Gaze: (0) Normal - Visual Visual: (0) No loss - Facial Palsy Facial Palsy: (0) Normal, symmetrical movement - Motor Arms (both separate) Motor Arm (right): (0) No drift Motor Arm (left): (0) No drift - Motor Legs (both separate) Motor Leg (right): (0) No drift Motor Leg (left): (0) No drift - Limb Ataxia Limb Ataxia: (0) Absent - Sensory Sensory: (0) Normal - Best Language Best Language: (0) No aphasia - Dysarthria Dysarthria: (0) Normal - Extinction and Inattention (formally neg Extinction and inattention: (0) No abnormality - Total Score/Results Total Score/Result: 0 Results - Vitals Vitals: Oxygen O2 Source Room air - EKG (time done) 02:17 Rate: Rate (enter#) (57) Rhythm: NSR [place]: Normal Intervals: Normal [place] QRS: Normal Ischemia: Normal ST segments Compare to prior EKG: Unchanged from prior EKG Computer interpretation: Agree with computer - Labs Labs: Laboratory Tests 12/22/18 12/22/18 02:12 02:12 WBC 9.0 RBC 4.55 L Hgb 12.0 L Hct 37.0 L MCV 81.3 MCH 26.4 L MCHC 32.4 RDW 15.0 Plt Count 216 MPV 9.3 Neut # (Auto) 6.9 H Lymph # (Auto) 1.1 L [place] # (Auto) 0.8 Eos # (Auto) 0.2 Baso # (Auto) 0.0 Absolute Nucleated RBC 0.00 Nucleated RBC % 0.0 Sodium 138 Potassium 3.7 Chloride 102 Carbon Dioxide 24 Anion Gap 12.0 BUN 27 H Creatinine 1.1 Estimated GFR (MDRD) 66 L Glucose 111 H Calcium 9.1 Total Bilirubin 1.7 H AST 14 ALT 16 Alkaline Phosphatase 45 Total Protein 7.1 Albumin 4.1 Globulin 3.0 Albumin/Globulin Ratio 1.4 Lipase 30 - Rads (name of study) Head CT Radiology: Prelim report reviewed, EMP read contemporaneously, See rad report (1) There is postsurgical change status post recent left frontoparietal craniotomy. There is a collection of extra-axial hyperdense blood and small volume of air underlying the craniotomy flap measuring up to 7 to 8 mm in thickness. There is mild effacement of underlying cortical sulci. There is no midline shift. 2) There is a thin layer of subdural blood overlying the left parietal and occipital lobes measuring up to 3 mm in thickness. No significant associated mass-effect. 3) There is no evidence of parenchymal hemorrhage. There is also no CT evidence of an acute infarct. 4) No hydrocephalus. 5) Prior exams are not available for comparison.) PD MEDICAL DECISION MAKING - ED course Complexity details: reviewed old records, reviewed results, re-evaluated patient, considered differential, d/w patient, d/w family ED course: the patient's presentation is significant for transient slurring of his speech six days status post craniotomy for subdural hematoma. There is currently no evidence of neurologic deficit on examination. Head CT reveals no new hemorrhage. Electrocardiogram reveals no rhythm disturbance at this time. Treatment in the emergency department included administration of acetaminophen 650 mg orally for the patient's mild headache. No further treatment or diagnostic workup is clinically indicated at this time. I discussed with the patient and his male surfboard maker results of the CT scan, the importance of outpatient follow-up, as well as potentially worrisome signs or symptoms that should prompt reevaluation is needed emergency department. Departure - Departure Disposition: 01 Home, Self Care Clinical Impression: Slurred speech, Status post craniotomy Condition: Stable Instructions: ED Cephalgia Unspecified Follow-Up: Eben Moseley MD [Credentialed Staff Provider] - Comments: Use Tylenol if needed for mild headache. You can use tramadol as previously prescribed if needed for headache. Follow-up with your primary physician this week as planned. Return to the emergency department if you develop increasing headache, recurrent or worsening slurring of your speech, or otherwise worsening symptoms. Discharge Date/Time: 12/22/18 03:54
[2018-12-22] MEDS ORDERED: ACETAMINOPHEN 325 MG TABLET PO STA (03:29)
[2018-12-22 03:35] VITALS: BP 142/72
== END 2018-12-22 03:54 | disposition home or self-care (01) ==
LOC: EDUNIT# → ED 01:47
DX: R47.81 Slurred speech (principal); I10 Essential (primary) hypertension; I48.91 Unspecified atrial fibrillation; Z98.890 Other specified postprocedural states; Z86.79 Personal history of other diseases of the circulatory system
CPT/HCPCS: 36415; 70450; 80053; 83690; 85025; 93005; 99284; A9270

== ENCOUNTER 2018-12-28 21:16 | Emergency (ER) | payer MEDICARE, BC ==
--- NOTE | 2018-12-28 21:34 | ED Physician Documentation ---
History of Present Illness - Stated complaint Stated Complaint: CALF PX AFT BRAIN SURGERY - Chief complaint Chief Complaint: General - History obtained from History obtained from: Patient - History of Present Illness Timing: Today - Additonal information Additional information: This is a 73-year-old man who was in [facility] in early December ended up having a craniotomy on December 15 due to spontaneous subdural hematoma. Since that time he is been experiencing muscle pains "up and down his body". He is been sitting mainly in a recliner chair and he just cannot get comfortable. He is taken Tylenol for the pain. Most of the pain is across the lower lumbar region and also into the right lateral upper thigh. Today he experienced some pain in his calves and he reviewed his discharge instructions the very last thing was to be evaluated if he developed calf pain. He called his primary care provider who suggested that it could just be muscle pain or a blood clot and he should come in if he was concerned. Patient has been using a heating pad. He has not noted any swelling. He is never had a DVT before. He was on warfarin for A. fib but had to discontinue it because of the subdural hematoma. Review of Systems Constitutional: denies: Fever Respiratory: denies: Dyspnea Skin: denies: Rash Musculoskeletal: reports: Back pain, Extremity pain (Right lateral thigh and calf "spasm".) Neurologic: reports: Numbness (Right corner of the mouth.), Difficulty speaking (Occasional a aphasia which has seemed to be improving dramatically.). denies: Altered mental status PD PAST MEDICAL HISTORY - Past Medical History Cardiovascular: Hypertension, High cholesterol, Atrial fibrillation Respiratory: Sleep apnea, CPAP use Neuro: Other (Spontaneous subdural hematoma.) Endocrine/Autoimmune: None GI: Ulcers : Benign prostate hypertrophy, Other HEENT: None Psych: Depression, Claustrophobia Musculoskeletal: None Derm: None - Past Surgical History Past Surgical History: Yes General: Colonoscopy Ortho: ACL reconstruction Neuro: Craniotomy HEENT: Tonsil/Adenoidectomy - Present Medications Home Medications: Ambulatory Orders Medication Instructions Recorded Confirmed Potassium Chloride [K-Dur] 30 meq PO QAM 04/20/13 12/22/18 Pravastatin Sodium 10 mg PO HS 04/20/13 12/22/18 amLODIPine [Norvasc] 10 mg PO HS 04/20/13 12/22/18 Metoprolol Succinate 50 mg ORAL DAILY 05/20/13 12/22/18 Tamsulosin [Flomax] 0.8 mg PO DAILY 06/03/15 12/22/18 Ondansetron HCl [Zofran] 4 mg PO Q6H PRN #10 tablet 05/01/16 12/22/18 Hydrochlorothiazide 12.5 mg PO DAILY 12/22/18 12/22/18 Irbesartan 300 mg PO DAILY 12/22/18 12/22/18 traMADol [Ultram] 50 mg PO Q4-6H PRN 12/22/18 12/22/18 - Allergies Allergies/Adverse Reactions: Allergies Allergy/AdvReac Type Severity Reaction Status Date / Time benazepril Allergy unknown Verified 12/22/18 01:53 nefazodone [Nefazodone] Allergy unknown Verified 12/22/18 01:53 spironolactone Allergy unknown Verified 12/22/18 01:53 terazosin [Terazosin] Allergy unknown Verified 12/22/18 01:53 codeine [Codeine] AdvReac Nausea Verified 12/22/18 01:53 - Social History Does the pt smoke?: No Smoking Status: Never smoker Does the pt drink ETOH?: No Does the pt have substance abuse?: No - Immunizations Immunizations are current?: Yes - POLST Patient has POLST: No PD ED PE NORMAL - Vitals Vital signs reviewed: Yes - General General: Alert and oriented X 3, No acute distress, Well developed/nourished - Respiratory Respiratory: No respiratory distress - Derm Derm: Normal color, Warm and dry, No rash - Extremities Extremities: No tenderness to palpate, No edema, No calf tenderness / cord - Neuro Neuro: Alert and oriented X 3, Normal speech - Psych Psych: Normal mood, Normal affect Results - Vitals Vitals: Vital Signs - 24 hr 12/28/18 21:19 Temperature 37.1 C Heart Rate 76 Respiratory 16 Rate Blood Pressure 144/75 H O2 Saturation 96 Oxygen O2 Source Room air PD MEDICAL DECISION MAKING - ED course Complexity details: reviewed results, d/w patient, d/w family ED course: The ultrasound was negative for DVT in both lower extremities. I think the patient's pain is musculoskeletal Just from being so sedentary since his surgery. He is reassured. Patient does have tramadol that he can use at home if needed for his discomfort. He is worried it can make him constipated eating prunes and is encouraged to drink lots of water. Departure - Departure Disposition: 01 Home, Self Care Clinical Impression: Bilateral calf pain Low back pain Qualifiers: Chronicity: acute Back pain laterality: bilateral Sciatica presence: with sciatica Sciatica laterality: sciatica of right side Qualified Code(s): M54.41 - Lumbago with sciatica, right side Condition: Good Instructions: ED Back Care Tips, ED Exercises Lumbar Muscles Follow-Up: Whit Tello ARNP, FILTER TIP CATCHER-C [Primary Care Provider] - Comments: Try the tramadol for the pain. Continue to drink plenty of water and take the prunes to minimize the risk of constipation. Some gentle stretching exercises both on the calf muscles in the lower back could be helpful. Getting started with physical therapy will probably help some as well. Follow-up with your primary care provider as needed.
--- NOTE | 2018-12-28 22:44 | Ultrasound Report ---
Reason: leg pain Procedure Date: 12/28/2018 Accession Number: [id number] / [id number] Procedure: US - Duplex Ext Veins Bilateral CPT Code: FULL RESULT: EXAM: BILATERAL LOWER EXTREMITY VENOUS ULTRASOUND EXAM DATE: 12/28/2018 10:25 PM. CLINICAL HISTORY: Bilateral leg pain. COMPARISON: None. TECHNIQUE: Real-time sonographic vascular imaging was performed by the all terrain vehicle technician through the lower extremities utilizing both color-flow and Doppler spectral analysis. Multiple medical center representative static images were saved for review. FINDINGS: Right: Common Femoral Vein (CFV): Normal. CFV-GSV Junction: Normal. Profunda Femoral Vein (PFV): Normal. Femoral Vein (FV) Prox: Normal. Femoral Vein (FV) Mid: Normal. Femoral Vein (FV) Dist: Normal. Popliteal Vein: Normal. Posterior Tibial Veins: Normal. Peroneal Veins: Normal. Left: Common Femoral Vein (CFV): Normal. CFV-GSV Junction: Normal. Profunda Femoral Vein (PFV): Normal. Femoral Vein (FV) Prox: Normal. Femoral Vein (FV) Mid: Normal. Femoral Vein (FV) Dist: Normal. Popliteal Vein: Normal. Posterior Tibial Veins: Normal. Peroneal Veins: Normal. Other: None. IMPRESSION: No evidence for deep venous thrombosis bilaterally. RADIA
[2018-12-28 23:14] VITALS: BP 126/77
== END 2018-12-28 23:16 | disposition home or self-care (01) ==
LOC: ED 21:16
DX: M79.661 Pain in right lower leg (principal); M79.662 Pain in left lower leg; M54.41 Lumbago with sciatica, right side; I10 Essential (primary) hypertension; Z86.79 Personal history of other diseases of the circulatory system
CPT/HCPCS: 93970; 99282; 99284

== ENCOUNTER 2018-12-29 03:16 | Outpatient (CLI) | payer MEDICARE, BC | END 2018-12-29 03:17 | disposition critical access hospital (66) | LOC: EMS 03:16 | PROVIDERS: ATTEND Surgery | DX: R00.2 Palpitations (principal) | CPT/HCPCS: A0425; A0429 ==

== ENCOUNTER 2018-12-29 03:52 | Emergency (ER) | payer MEDICARE, BC ==
--- NOTE | 2018-12-29 04:17 | ED Physician Documentation ---
History of Present Illness - Stated complaint Stated Complaint: PALPITATIONS, AFIB - Chief complaint Chief Complaint: Cardiac - History obtained from History obtained from: Patient - History of Present Illness Timing: How many hours ago (4) - Additonal information Additional information: This is a 73-year-old man with a history of A. fib who was on Coumadin and suffered a subdural hematoma. He had to be taken off the Coumadin and he went back into A. fib tonight around midnight. I actually saw him in the emergency department last evening because he was concerned he might have a blood clot. At that time his pulse rate was normal and regular and he was discharged home after negative DVT ultrasound. As he was getting ready for bed he felt some heart pa lpitations he got his CPAP machine all hooked up and laid down had a little difficulty getting it adjusted so he can breathe easily but did eventually fall asleep and woke up approximately an hour prior to presentation with still feeling the palpitations. He decided to get up and check his blood pressure and it was 157/120. He checked it again and it was still elevated so he woke up his friend and they decided to call 911. When EMS arrived his blood pressure had improved but they recommended he come in to be evaluated. He denies any chest pain. He said he feels better now. He does not did not not get dizzy and had no nausea or vomiting. He was due to restart his Coumadin today after having an INR tested. Patient takes metoprolol 50 mg and he had his dose around 6 PM he is also on amlodipine 10 mg daily. Review of Systems Constitutional: denies: Fever Eyes: denies: Loss of vision Nose: denies: Congestion Cardiac: reports: Palpitations. denies: Chest pain / pressure, Pedal edema Respiratory: reports: Dyspnea. denies: Cough GI: denies: Nausea, Vomiting : denies: Dysuria Musculoskeletal: reports: Back pain Neurologic: reports: Numbness (To the right corner of the mouth and the right tongue) Endocrine: reports: Other (He is currently off of blood thinning medications.) PD PAST MEDICAL HISTORY - Past Medical History Cardiovascular: Hypertension, High cholesterol, Atrial fibrillation Respiratory: Sleep apnea, CPAP use Neuro: Other Endocrine/Autoimmune: None GI: Ulcers : Benign prostate hypertrophy, Other HEENT: None Psych: Depression, Claustrophobia Musculoskeletal: None Derm: None - Past Surgical History Past Surgical History: Yes General: Colonoscopy Ortho: ACL reconstruction Neuro: Craniotomy HEENT: Tonsil/Adenoidectomy - Present Medications Home Medications: Ambulatory Orders Medication Instructions Recorded Confirmed Potassium Chloride [K-Dur] 30 meq PO QAM 04/20/13 12/22/18 Pravastatin Sodium 10 mg PO HS 04/20/13 12/22/18 amLODIPine [Norvasc] 10 mg PO HS 04/20/13 12/22/18 Metoprolol Succinate 50 mg ORAL DAILY 05/20/13 12/22/18 Tamsulosin [Flomax] 0.8 mg PO DAILY 06/03/15 12/22/18 Ondansetron HCl [Zofran] 4 mg PO Q6H PRN #10 tablet 05/01/16 12/22/18 Hydrochlorothiazide 12.5 mg PO DAILY 12/22/18 12/22/18 Irbesartan 300 mg PO DAILY 12/22/18 12/22/18 traMADol [Ultram] 50 mg PO Q4-6H PRN 12/22/18 12/22/18 - Allergies Allergies/Adverse Reactions: Allergies Allergy/AdvReac Type Severity Reaction Status Date / Time benazepril Allergy unknown Verified 12/29/18 04:10 nefazodone [Nefazodone] Allergy unknown Verified 12/29/18 04:10 spironolactone Allergy unknown Verified 12/29/18 04:10 terazosin [Terazosin] Allergy unknown Verified 12/29/18 04:10 codeine [Codeine] AdvReac Nausea Verified 12/29/18 04:10 - Social History Does the pt smoke?: No Smoking Status: Never smoker Does the pt drink ETOH?: No Does the pt have substance abuse?: No - Immunizations Immunizations are current?: Yes - POLST Patient has POLST: No PD ED PE NORMAL - Vitals Vital signs reviewed: Yes - General General: Alert and oriented X 3, No acute distress, Well developed/nourished, Other (Pleasant 73-year-old man who is not in any acute distress.) - HEENT HEENT: Atraumatic, PERRL, Moist mucous membranes - Neck Neck: Supple, no meningeal sign, No adenopathy, Thyroid normal - Cardiac Cardiac: No murmur, Other (Mild tachycardia with irregular rhythm.) - Respiratory Respiratory: No respiratory distress, Clear bilaterally - Abdomen Abdomen: Normal bowel sounds, Soft, Non tender - Derm Derm: Normal color, No rash - Neuro Neuro: Alert and oriented X 3, No motor deficit, Normal speech - Psych Psych: Normal mood, Normal affect Results - Vitals Vitals: Vital Signs - 24 hr 12/29/18 12/29/18 12/29/18 03:54 04:44 05:15 Temperature 36.9 C Heart Rate 130 H 101 H 80 Respiratory 13 20 18 Rate Blood Pressure 132/72 H 139/92 H 107/71 O2 Saturation 97 96 94 12/29/18 12/29/18 05:59 06:37 Temperature Heart Rate 77 78 Respiratory 14 20 Rate Blood Pressure 106/69 108/66 O2 Saturation 99 97 Oxygen O2 Source Room air - EKG (time done) 0354 Rate: Rate (enter#) Rhythm: Atrial fibrillation Ischemia: Non specific changes - Labs Labs: Laboratory Tests 12/29/18 12/29/18 12/29/18 04:00 04:00 04:00 WBC 7.6 RBC 4.93 Hgb 13.5 L Hct 40.6 L MCV 82.4 MCH 27.4 MCHC 33.3 RDW 14.6 Plt Count 254 MPV 9.6 Neut # (Auto) 5.1 Lymph # (Auto) 1.3 L [place] # (Auto) 0.5 Eos # (Auto) 0.6 Baso # (Auto) 0.0 Absolute Nucleated RBC 0.00 Nucleated RBC % 0.0 PT INR APTT Sodium 140 Potassium 3.7 Chloride 104 Carbon Dioxide 21 Anion Gap 15.0 H BUN 19 Creatinine 1.0 Estimated GFR (MDRD) 73 L Glucose 114 H Calcium 9.8 Total Bilirubin 1.1 H AST 14 ALT 15 Alkaline Phosphatase 52 Troponin I < 0.04 Total Protein 7.7 Albumin 4.4 Globulin 3.3 Albumin/Globulin Ratio 1.3 Lipase 35 12/29/18 04:00 WBC RBC Hgb Hct MCV MCH MCHC RDW Plt Count MPV Neut # (Auto) Lymph # (Auto) [place] # (Auto) Eos # (Auto) Baso # (Auto) Absolute Nucleated RBC Nucleated RBC % PT 13.8 H INR 1.2 APTT 32.7 Sodium Potassium Chloride Carbon Dioxide Anion Gap BUN Creatinine Estimated GFR (MDRD) Glucose Calcium Total Bilirubin AST ALT Alkaline Phosphatase Troponin I Total Protein Albumin Globulin Albumin/Globulin Ratio Lipase PD MEDICAL DECISION MAKING - ED course ED course: I discussed case with the rebar worker on-call for Dr. Bro. She agrees with restarting the Coumadin and the patient is aware of the regimen that his primary wanted him to start on. He also understands that there will recheck INR in 3 days. The rebar worker mentioned new device called a watchman device that he may be a candidate for that would negate the need for him to have anticoagulation in the future. This was discussed with the patient and he should make an appointment to see Dr. Bro. He Lalo has one scheduled for later this month. His troponin and other labs were normal. He is extremely nervous about restarting the Coumadin but we have had lengthy discussion about that and things to watch for and terms of whether or not there is any further problems. His questions of all been answered to the best of my ability. Departure - Departure Disposition: 01 Home, Self Care Clinical Impression: Afib Qualifiers: Atrial fibrillation type: paroxysmal Qualified Code(s): I48.0 - Paroxysmal atrial fibrillation Condition: Good Instructions: ED Afib Follow-Up: Whit Tello ARNP, [employer]AC[employer] SECURITY CONSULTANT-C [Primary Care Provider] - Duncan Bro MD [Provider Admit Priv/Credential] - Comments: Start your Coumadin as you had outlined with your primary care provider today. I would contact her today and let her know that you are in the emergency department twice this weekend and that your INR was 1.1. She will make arrangements to have your INR retested. I would also discuss the watchman devic e with Dr. Bro that was suggested by his partner. Return if you have any signs or symptoms of stroke including headache, dizziness, vision disturbances, weakness in the facial muscles or extremities.
[2018-12-29 04:41] LABS: BASOPHILS % (AUTO) 0.4 %; EOSINOPHILS # (AUTO) 0.6 10^3/uL (0.0-0.7); EOSINOPHILS % (AUTO) 7.4 %; HGB - HEMOGLOBIN 13.5 g/dL (14.0-18.0); LYMPHOCYTES # (AUTO) 1.3 10^3/uL (1.5-3.5); LYMPHOCYTES % (AUTO) 17.2 %; MEAN CORPUSCULAR HEMOGLOBIN 27.4 pg (27.0-31.0); MEAN CORPUSCULAR HGB CONC 33.3 g/dL (32.0-36.0); MEAN CORPUSCULAR VOLUME 82.4 fL (80.0-94.0); MEAN PLATELET VOLUME 9.6 fL (7.4-11.4); MONOCYTES # (AUTO) 0.5 10^3/uL (0.0-1.0); NEUTROPHILS # (AUTO) 5.1 10^3/uL (1.5-6.6); NEUTROPHILS % (AUTO) 67.6 %; PLT - PLATELET COUNT 254 10^3/uL (130-450); RED BLOOD COUNT 4.93 10^6/uL (4.70-6.10); RED CELL DISTRIBUTION WIDTH 14.6 % (12.0-15.0); WHITE BLOOD COUNT 7.6 x10^3/uL (4.8-10.8)
[2018-12-29] MEDS ORDERED: METOPROLOL TARTRATE 50 MG TABLET PO STA (04:41)
[2018-12-29 04:54] LABS: ALBUMIN 4.4 g/dL (3.2-5.5); ALBUMIN/GLOBULIN RATIO 1.3 (1.0-2.2); BILIRUBIN,TOTAL 1.1 mg/dL (0.2-1.0); CALCIUM 9.8 mg/dL (8.5-10.3); TOTAL PROTEIN 7.7 g/dL (6.7-8.2)
[2018-12-29 04:59] LABS: PARTIAL THROMBOPLASTIN TIME 32.7 secs (24.9-33.3)
[2018-12-29 05:01] LABS: INR 1.2 (0.8-1.2); PT - PROTHROMBIN TIME 13.8 secs (9.9-12.6)
[2018-12-29 07:32] VITALS: BP 107/71
== END 2018-12-29 07:30 | disposition home or self-care (01) ==
LOC: EDUNIT# → ED 03:52
DX: I48.0 Paroxysmal atrial fibrillation (principal); I10 Essential (primary) hypertension; G47.30 Sleep apnea, unspecified
CPT/HCPCS: 36415; 80053; 83690; 84484; 85025; 85610; 85730; 93005; 99284; A9270

== ENCOUNTER 2019-01-01 10:04 | Outpatient (CLI) | payer MEDICARE, BC | END 2019-01-01 10:05 | disposition home or self-care (01) | LOC: LAB 10:04 | PROVIDERS: ATTEND Internal Medicine | DX: I48.91 Unspecified atrial fibrillation (principal); Z79.01 Long term (current) use of anticoagulants | CPT/HCPCS: 85610 ==

== ENCOUNTER 2019-01-05 08:10 | Outpatient (CLI) | payer MEDICARE, BC | END 2019-01-05 08:11 | disposition home or self-care (01) | LOC: LAB 08:10 | PROVIDERS: ATTEND Internal Medicine | DX: I48.91 Unspecified atrial fibrillation (principal); Z79.01 Long term (current) use of anticoagulants | CPT/HCPCS: 85610 ==

== ENCOUNTER 2019-01-05 21:38 | Emergency (ER) | payer MEDICARE, BC ==
--- NOTE | 2019-01-05 22:02 | ED Physician Documentation ---
PD HPI HEADACHE - Stated complaint Stated Complaint: BASS/21 DAYS POST OP - Chief complaint Chief Complaint: Heent - History obtained from History obtained from: Patient - History of Present Illness Timing - onset: How many hours ago (1), Today Timing - details: Abrupt onset (Patient was out walking his dog and the dog pulled on the leash abruptly and caused the patient to turn his head suddenly any noted a moderate left-sided headache. He is 3 weeks post craniotomy for a spontaneous subdural on warfarin. He was on vacation in [place] and had surgery there. He had been doing well postoperatively without any fevers, focal symptoms, headaches. He was concerned with the onset of the headache tonight even though it was not very severe. He cannot tell whether it was scalp or deeper headache. He had resumed warfarin a few days ago.) Worst headache ever?: No: Worst headache ever? Location: Left Quality: Throbbing, Aching Associated symptoms: No: Fever, Stiff neck, Nausea, Weakness, Numbness Contributing factors: Anticoagulated. No: Recent illness Recently seen: Surgery (3 weeks post op craniotomy for spontaneous subdural.) Review of Systems Constitutional: denies: Fever, Chills Eyes: denies: Loss of vision Nose: denies: Rhinorrhea / runny nose, Congestion Throat: denies: Sore throat Respiratory: denies: Cough GI: denies: Nausea, Vomiting Neurologic: denies: Focal weakness, Numbness PD PAST MEDICAL HISTORY - Past Medical History Cardiovascular: Hypertension, High cholesterol, Atrial fibrillation Respiratory: Sleep apnea, CPAP use Neuro: Other Endocrine/Autoimmune: None GI: Ulcers : Benign prostate hypertrophy, Other HEENT: None Psych: Depression, Claustrophobia Musculoskeletal: None Derm: None - Past Surgical History Past Surgical History: Yes General: Colonoscopy Ortho: ACL reconstruction Neuro: Craniotomy HEENT: Tonsil/Adenoidectomy - Present Medications Home Medications: Ambulatory Orders Medication Instructions Recorded Confirmed Potassium Chloride [K-Dur] 30 meq PO QAM 04/20/13 12/22/18 RX: Pravastatin Sodium 10 mg PO HS 04/20/13 12/22/18 amLODIPine [Norvasc] 10 mg PO HS 04/20/13 12/22/18 RX: Metoprolol Succinate 50 mg ORAL DAILY 05/20/13 12/22/18 Tamsulosin [Flomax] 0.8 mg PO DAILY 06/03/15 12/22/18 Ondansetron HCl [Zofran] 4 mg PO Q6H PRN #10 tablet 05/01/16 12/22/18 RX: Hydrochlorothiazide 12.5 mg PO DAILY 12/22/18 12/22/18 RX: Irbesartan 300 mg PO DAILY 12/22/18 12/22/18 traMADol [Ultram] 50 mg PO Q4-6H PRN 12/22/18 12/22/18 - Allergies Allergies/Adverse Reactions: Allergies Allergy/AdvReac Type Severity Reaction Status Date / Time benazepril Allergy unknown Verified 01/05/19 21:52 nefazodone [Nefazodone] Allergy unknown Verified 01/05/19 21:52 spironolactone Allergy unknown Verified 01/05/19 21:52 terazosin [Terazosin] Allergy unknown Verified 01/05/19 21:52 codeine [Codeine] AdvReac Nausea Verified 01/05/19 21:52 - Social History Does the pt smoke?: No Smoking Status: Never smoker Does the pt drink ETOH?: No Does the pt have substance abuse?: No - Immunizations Immunizations are current?: Yes - POLST Patient has POLST: No PD ED PE NORMAL - Vitals Vital signs reviewed: Yes - General General: Alert and oriented X 3, No acute distress, Well developed/nourished - HEENT HEENT: PERRL, EOMI, Ears normal, Pharynx benign, Other (Left sided semicircular craniotomy scar at the parietal area with good healing and no signs of infection. There are couple of small residual scabs. 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 Comparison with recent shows resolving/improving post operative changes. ), See rad report PD MEDICAL DECISION MAKING - ED course Complexity details: considered differential (Is 3 weeks postop with abrupt headache after just twisting of his head and neck. His pain is not in the neck itself but at the craniotomy site. It may be just scar tissue. However he had resumed warfarin several days ago and would certainly be at risk for rebleed so will perform a CT scan.), d/w patient Departure - Departure Disposition: 01 Home, Self Care Clinical Impression: Status post craniotomy Headache Qualifiers: Headache type: unspecified Headache chronicity pattern: acute headache Intractability: not intractable Qualified Code(s): R51 - Headache Condition: Stable Record reviewed to determine appropriate education?: Yes Follow-Up: Whit Tello ARNP, [facility] [Primary Care Provider] - Comments: Your head CT shows resolving and improving postoperative changes. The radiologist reading affirms that. I presume the discomfort you had this evening was from some scar tissue in the scalp. Use Tylenol if needed for pains. Continue your present medications. Discharge Date/Time: 01/06/19 00:10
[2019-01-05] MEDS ORDERED: ACETAMINOPHEN 325 MG TABLET PO STA (22:12)
--- NOTE | 2019-01-05 23:16 | CT Report ---
Reason: abrupt mod headache tonight; s/p subdural 3 wk ago Procedure Date: 01/05/2019 Accession Number: [id number] / [id number] Procedure: CT - HEAD WO CPT Code: FULL RESULT: EXAM: CT HEAD EXAM DATE: 01/05/2019 10:32 PM. CLINICAL HISTORY: Abrupt moderate headache tonight; status post subdural 3 weeks ago. COMPARISON: HEAD W/O 12/22/2018 2:28 AM. TECHNIQUE: Multiaxial CT images were obtained from the foramen magnum to the vertex. Reformats: Sagittal and coronal. IV contrast: None. In accordance with CT protocol optimization, one or more of the following dose reduction techniques were utilized for this exam: automated exposure control, adjustment of mA and/or KV based on patient size, or use of iterative reconstructive technique. FINDINGS: Parenchyma: No intraparenchymal hemorrhage. No evidence of mass, midline shift, or CT findings of acute infarction. Moran-white differentiation is distinct. Mild diffuse chronic microangiopathic white matter changes are evident. Extraaxial Spaces: The residual left frontal subdural hematoma has undergone expected evolution with decreased attenuation of internal blood products and decreased postoperative pneumocephalus. The residual low-density fluid collection now measures 6 mm on coronal images, previously 8 mm. No new extra-axial hemorrhage is evident. Ventricles: The ventricles and cortical sulci are moderately enlarged, consistent with age-related tissue loss. Mild interval expansion of the left lateral ventricle is related to decreased mass-effect from the resolving subdural hematoma. Sinuses and Orbits: Postsurgical changes from cataract extractions are noted in the globes. There is new extensive mucosal thickening throughout the ethmoid sinuses with persistent extensive mucosal thickening of the left frontal sinus. The mastoid sinuses are not opacified. Bones: Left-sided craniotomy changes are again demonstrated from recent hematoma evacuation. There is no acute calvarial fracture or scalp hematoma. Other: Mild intracranial atherosclerosis is present. IMPRESSION: 1. Expected decreased size and attenuation of the residual left frontal subdural hematoma compared to the brain CT from 12/22/2018. 2. No new intra-axial or extra-axial hemorrhage is seen. 3. Decreased mass-effect from the resolving subdural hematoma. RADIA
[2019-01-05 23:51] VITALS: BP 139/82
== END 2019-01-06 00:10 | disposition home or self-care (01) ==
LOC: ED 21:38
DX: R51 Headache (principal); Z98.890 Other specified postprocedural states; Z86.79 Personal history of other diseases of the circulatory system; I10 Essential (primary) hypertension; I48.91 Unspecified atrial fibrillation; Z79.01 Long term (current) use of anticoagulants
CPT/HCPCS: 70450; 85610; 99284; A9270

== ENCOUNTER 2019-01-12 09:22 | Outpatient (CLI) | payer MEDICARE, BC | END 2019-01-12 09:23 | disposition home or self-care (01) | LOC: LAB 09:22 | PROVIDERS: ATTEND Internal Medicine | DX: I48.91 Unspecified atrial fibrillation (principal); Z79.01 Long term (current) use of anticoagulants | CPT/HCPCS: 85610 ==

== ENCOUNTER 2019-01-19 | Outpatient (CLI) | payer MEDICARE, BC | END 2019-01-19 09:59 | disposition home or self-care (01) ==

== ENCOUNTER 2019-01-26 08:56 | Outpatient (CLI) | payer MEDICARE, BC | END 2019-01-26 08:57 | disposition home or self-care (01) | LOC: LAB 08:56 | PROVIDERS: ATTEND Internal Medicine | DX: I48.91 Unspecified atrial fibrillation (principal); Z79.01 Long term (current) use of anticoagulants | CPT/HCPCS: 85610 ==

== ENCOUNTER 2019-01-29 02:39 | Emergency (ER) | payer MEDICARE, BC ==
--- NOTE | 2019-01-29 03:14 | ED Physician Documentation ---
History of Present Illness - Stated complaint Stated Complaint: BASS - Chief complaint Chief Complaint: Neuro - Additonal information Additional information: This is a 73-year-old male with a history of a large left subdural hematoma status post craniotomy in [place] in December of this year, who presents with a headache. Patient states that he began having a dull achiness over the left side of his head that began around 9 PM last night, 6 hours prior to arrival. He laid down take a nap, woke up and he still had some mild persistent pain. He says the pain is 2 out of 10, and has not worsened, was gradual in onset, but given his continued use of warfarin, as well as his past subdural he decided to come in to get checked out. He denies any weakness, numbness, tingling. Review of Systems Constitutional: denies: Fever Eyes: denies: Loss of vision Throat: denies: Oral lesions / sores Cardiac: denies: Chest pain / pressure GI: denies: Abdominal Pain : denies: Dysuria Musculoskeletal: denies: Neck pain Neurologic: reports: Headache PD PAST MEDICAL HISTORY - Past Medical History Cardiovascular: Hypertension, High cholesterol, Atrial fibrillation Respiratory: Sleep apnea, CPAP use Neuro: Other Endocrine/Autoimmune: None GI: Ulcers : Benign prostate hypertrophy, Other HEENT: None Psych: Depression, Claustrophobia Musculoskeletal: None Derm: None Other Past Medical History: subdural hematoma 12/15/18. - Past Surgical History Past Surgical History: Yes General: Colonoscopy Ortho: ACL reconstruction Neuro: Craniotomy HEENT: Tonsil/Adenoidectomy - Present Medications Home Medications: Ambulatory Orders Medication Instructions Recorded Confirmed Potassium Chloride [K-Dur] 30 meq PO QAM 04/20/13 01/29/19 Pravastatin Sodium 10 mg PO HS 04/20/13 01/29/19 amLODIPine [Norvasc] 10 mg PO HS 04/20/13 01/29/19 Metoprolol Succinate 50 mg ORAL DAILY 05/20/13 01/29/19 Tamsulosin [Flomax] 0.8 mg PO DAILY 06/03/15 01/29/19 Ondansetron HCl [Zofran] 4 mg PO Q6H PRN #10 tablet 05/01/16 01/29/19 Hydrochlorothiazide 12.5 mg PO DAILY 12/22/18 01/29/19 traMADol [Ultram] 50 mg PO Q4-6H PRN 12/22/18 01/29/19 Losartan Potassium 100 mg PO DAILY 01/29/19 01/29/19 Warfarin [Coumadin] 2.5 mg PO 01/29/19 - Allergies Allergies/Adverse Reactions: Allergies Allergy/AdvReac Type Severity Reaction Status Date / Time benazepril Allergy unknown Verified 01/05/19 21:52 nefazodone [Nefazodone] Allergy unknown Verified 01/05/19 21:52 spironolactone Allergy unknown Verified 01/05/19 21:52 terazosin [Terazosin] Allergy unknown Verified 01/05/19 21:52 codeine [Codeine] AdvReac Nausea Verified 01/05/19 21:52 - Social History Does the pt smoke?: No Smoking Status: Never smoker Does the pt drink ETOH?: No Does the pt have substance abuse?: No - Immunizations Immunizations are current?: Yes - POLST Patient has POLST: No PD ED PE NORMAL - Vitals Vital signs reviewed: Yes - General General: Alert and oriented X 3, No acute distress - HEENT HEENT: Other (Well-healed craniotomy incision over left scalp.) - Neck Neck: Supple, no meningeal sign - Cardiac Cardiac: RRR - Respiratory Respiratory: No respiratory distress - Abdomen Abdomen: Non distended - Derm Derm: Warm and dry - Extremities Extremities: No deformity - Neuro Neuro: Alert and oriented X 3, 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, No motor deficit, No sensory deficit, Normal speech - Psych Psych: Normal mood, Normal affect Results - Vitals Vitals: Vital Signs - 24 hr 01/29/19 01/29/19 01/29/19 02:41 02:56 04:13 Temperature 36.6 C 36.6 C 37.0 C Heart Rate 55 L 55 L 54 L Respiratory 16 17 18 Rate Blood Pressure 126/77 126/77 129/73 O2 Saturation 96 96 96 Oxygen O2 Source Room air - Labs Labs: Laboratory Tests 01/29/19 01/29/19 01/29/19 03:20 03:20 03:20 WBC 5.6 RBC 4.51 L Hgb 12.3 L Hct 37.7 L MCV 83.6 MCH 27.3 MCHC 32.6 RDW 14.9 Plt Count 156 MPV 9.4 Neut # (Auto) 3.3 Lymph # (Auto) 1.3 L [place] # (Auto) 0.4 Eos # (Auto) 0.5 Baso # (Auto) 0.0 Absolute Nucleated RBC 0.00 Nucleated RBC % 0.0 PT 37.1 H INR 3.3 H Sodium 141 Potassium 3.6 Chloride 105 Carbon Dioxide 24 Anion Gap 12.0 BUN 28 H Creatinine 1.2 Estimated GFR (MDRD) 59 L Glucose 98 Calcium 9.9 - Rads (name of study) CT head Radiology: Prelim report reviewed (Interval decrease in the size of residual chronic left subdural collection and resolution of postoperative gas. No acute hemorrhage) PD MEDICAL DECISION MAKING - ED course Complexity details: considered differential (Tension headache, migraine, postoperative headache, subarachnoid hemorrhage, subdural hemorrhage, subtherapeutic/supratherapeutic INR) ED course: On initial examination patient is well-appearing no neurologic deficits, and vital signs are notable for bradycardia consistent with his beta-esther use. He has had a mild headache which was gradual in onset, and similar to past headaches he has been having since the surgery. Given his continued anticoagu lant use, as well as his subdural hemorrhage, CT of the head was obtained which shows improvement of the residual subdural hemorrhage, no new bleed. His labs are notable for an INR of 3.3 which is slightly supratherapeutic. On repeat examination patient states he is feeling well, his pain is 1 out of 10, he has no new neurologic symptoms. I highly doubt subarachnoid hemorrhage given the negative CT, as well as his very mild symptoms of gradual in onset and similar to other headaches he has been having since the surgery. No infectious signs or symptoms. I discussed the results of our studies with the patient, and recommended that he follow-up closely with his primary care provider on his labs and his supratherapeutic INR. He will call today to discuss holding a dose of the medication versus taking a lesser dose. I also discussed return precautions including worsening headache, any numbness, weakness, or tingling, or any other concerning symptoms. Patient agreed this plan was discharged home. Departure - Departure Disposition: 01 Home, Self Care Clinical Impression: Supratherapeutic INR Headache Qualifiers: Headache type: unspecified Headache chronicity pattern: acute headache Intra ctability: not intractable Qualified Code(s): R51 - Headache Instructions: ED Cephalgia Unspecified Follow-Up: Whit Tello ARNP, RN [facility] [Primary Care Provider] - Within 3 Days (For follow up on symptoms and INR recheck) Comments: You were seen today for headache. Your CT does not show signs of any new or worsening bleed. Your INR is slightly above goal at 3.3. Please contact your PCP today to discuss lowering a dose or holding a dose of your warfarin. If you develop worsening headache, or any other new or concerning symptoms such as weakness or numbness, return to the emergency department immediately. Otherwise follow-up with your primary care provider.
[2019-01-29 03:28] LABS: BASOPHILS % (AUTO) 0.4 %; EOSINOPHILS # (AUTO) 0.5 10^3/uL (0.0-0.7); EOSINOPHILS % (AUTO) 9.1 %; HGB - HEMOGLOBIN 12.3 g/dL (14.0-18.0); LYMPHOCYTES # (AUTO) 1.3 10^3/uL (1.5-3.5); LYMPHOCYTES % (AUTO) 23.3 %; MEAN CORPUSCULAR HEMOGLOBIN 27.3 pg (27.0-31.0); MEAN CORPUSCULAR HGB CONC 32.6 g/dL (32.0-36.0); MEAN CORPUSCULAR VOLUME 83.6 fL (80.0-94.0); MEAN PLATELET VOLUME 9.4 fL (7.4-11.4); MONOCYTES # (AUTO) 0.4 10^3/uL (0.0-1.0); MONOCYTES % (AUTO) 7.3 %; NEUTROPHILS # (AUTO) 3.3 10^3/uL (1.5-6.6); NEUTROPHILS % (AUTO) 59.5 %; PLT - PLATELET COUNT 156 10^3/uL (130-450); RED BLOOD COUNT 4.51 10^6/uL (4.70-6.10); RED CELL DISTRIBUTION WIDTH 14.9 % (12.0-15.0); WHITE BLOOD COUNT 5.6 x10^3/uL (4.8-10.8)
[2019-01-29 03:37] LABS: CALCIUM 9.9 mg/dL (8.5-10.3); CREATININE 1.2 mg/dL (0.6-1.2)
[2019-01-29 03:39] LABS: INR 3.3 (0.8-1.2); PT - PROTHROMBIN TIME 37.1 secs (9.9-12.6)
--- NOTE | 2019-01-29 04:00 | CT Report ---
Reason: headache, on warfarin, hx subdural Procedure Date: 01/29/2019 Accession Number: [id number] / [id number] Procedure: CT - HEAD WO CPT Code: FULL RESULT: EXAM: CT HEAD EXAM DATE: 01/29/2019 03:38 AM. CLINICAL HISTORY: Headache, on warfarin, hx subdural. COMPARISON: HEAD W/O 01/05/2019 10:25 PM. TECHNIQUE: Multiaxial CT images were obtained from the foramen magnum to the vertex. Reformats: Sagittal and coronal. IV contrast: None. In accordance with CT protocol optimization, one or more of the following dose reduction techniques were utilized for this exam: automated exposure control, adjustment of mA and/or KV based on patient size, or use of iterative reconstructive technique. FINDINGS: Parenchyma: No intraparenchymal hemorrhage. No evidence of mass, midline shift, or CT findings of acute infarction. Moran-white differentiation is distinct. Diffuse chronic microangiopathic white matter changes are evident. Extraaxial Spaces: Interval decrease in size of chronic right dural left subdural collection, now measuring 2 mm. Resolution of previously seen postoperative gas. No new hemorrhage. Ventricles: The ventricles and cortical sulci are enlarged, consistent with age-related tissue loss. Sinuses and orbits: Chronic ethmoid, left frontal, and sphenoid sinus disease Bones: Postoperative changes of left craniotomy. Other: None. IMPRESSION: Interval decrease in size of residual chronic left subdural collection and resolution of postoperative gas. No acute hemorrhage. RADIA
[2019-01-29 04:14] VITALS: BP 129/73
== END 2019-01-29 04:27 | disposition home or self-care (01) ==
LOC: ED 02:39
DX: R79.1 Abnormal coagulation profile (principal); R51 Headache; I10 Essential (primary) hypertension; Z79.01 Long term (current) use of anticoagulants; Z86.79 Personal history of other diseases of the circulatory system
CPT/HCPCS: 36415; 70450; 80048; 85025; 85610; 99284

== ENCOUNTER 2019-02-04 10:24 | Outpatient (CLI) | payer MEDICARE, BC | END 2019-02-04 10:25 | disposition home or self-care (01) | LOC: LAB 10:24 | PROVIDERS: ATTEND Internal Medicine | DX: Z79.01 Long term (current) use of anticoagulants (principal); I48.91 Unspecified atrial fibrillation | CPT/HCPCS: 85610 ==

== ENCOUNTER 2019-02-05 16:33 | Outpatient (CLI) | payer MEDICARE, BC ==
--- NOTE | 2019-02-06 12:19 | Ultrasound Report ---
Reason: RENAL CYST, RIGHT, RENAL CYSTS BILATERAL Procedure Date: 02/05/2019 Accession Number: [id number] / [id number] Procedure: US - Retroperitoneal CPT Code: FULL RESULT: EXAM: RENAL ULTRASOUND EXAM DATE: 02/05/2019 05:01 PM. CLINICAL HISTORY: RENAL CYST, RIGHT. RENAL CYSTS, BILATERAL. COMPARISON: RETROPERITONEAL LIMITED 11/09/2018 8:13 AM RETROPERITONEAL 05/12/2018 9:42 AM. TECHNIQUE: Real-time scanning was performed with static images obtained. FINDINGS: Right Kidney: 12.3 x 6.8 x 6.6 cm. Heterogeneous, mildly vascular exophytic masslike structure extending from the inferior right kidney measuring 2.5 x 2.8 x 3 cm noted. Previously measuring 3.1 cm. Mildly complex mid to superior right renal cyst measuring 2.7 x 2.8 x 3 cm with apparent septations with mild vascularity. Previously measuring 2.8 cm. No mural nodules are noted. No stones or hydronephrosis. Left Kidney: 13.1 x 4.5 x 6.5 cm. Normal echotexture with no stones, contour-deforming masses, or hydronephrosis. 1.8 x 1.4 x 2.6 cm mid lateral left renal anechoic cyst. 2.6 x 1.7 x 2.4 cm superior left renal anechoic cyst. Thin septation noted. No wall irregularities, mural nodules or thickened septations. Multiple additional smaller cysts are noted. Bladder: Bilateral jets seen. The prevoid bladder volume was 440 cc. The postvoid bladder volume was 328.5 cc. Enlarged prostate gland measures 5.1 x 5.5 x 5.1 cm for a volume of 73.6 cc. Other: None. IMPRESSION: 1. Solid, mildly vascular inferior right renal mass. Recommend further imaging with contrast-enhanced CT for definitive characterization. Imaging findings remain concerning for renal cell carcinoma. 2. Multiple simple and mildly complex septated renal cysts are noted. 3. Enlarged prostate gland. 4. No bladder mass or stone. Large postvoid residual. RADIA
== END 2019-02-05 16:34 | disposition home or self-care (01) ==
LOC: DI 16:33
PROVIDERS: ATTEND Nurse Practitioner
DX: N28.1 Cyst of kidney, acquired (principal); N28.89 Other specified disorders of kidney and ureter; N40.0 Benign prostatic hyperplasia without lower urinary tract symptoms
CPT/HCPCS: 76770

== ENCOUNTER 2019-02-11 13:19 | Outpatient (CLI) | payer MEDICARE, BC ==
[2019-02-11 14:38] VITALS: BP 118/70
--- NOTE | 2019-02-11 14:38 | SLEEP CARE CONSULTATION ---
Information from patient questionnaire entered by Valeria Spears. I have reviewed and concur with the information entered by Valeria Spears. This document represents the service I personally performed and the decisions made by me, Aydee Ellison, RN, MSN, F[employer]. History of Present Illness Previous diagnosis: Severe, Obstructive Sleep Apnea-Hypopnea Syndrome AHI: 48.8 Reason for CPAP/BiPAP follow up: other (2 month) Equipment type: CPAP Equipment obtained from: [facility] (having difficulty getting supplies, or return of calls and considering transfer) Mask style: Nasal pillows Mask brand: Respironics Backup mask available: Yes Last cushion change: a week or so ago HPI additional information: Patient is waiting to hear from support assistant and neurologist if he needs a Watchman procedure. CPAP Compliance Data - Data Reviewed with Patient Average duration of nightly device use: 6.1 Compliance rate %: 83.3 (60 days) Current pressure setting (cmH2O): 13 Humidity settin Heated hose settin Average residual AHI: 1.4 Average large leak: 2 mins 35 secs Subjective Missed days of use due to: reports: illness (unable to use CPAP immediate post operatively due to discomfort of headgear to incision of crainiotomy), other Patient concerns: reports: air blowing in eyes (just initial use until adjusts mask), nasal congestion (mild most of time), dry mouth, nose, throat (most days oral dryness), other (oral venting in initiation of treatment ). denies: aerophagia, mask discomfort, mask leak noise, condensation in mask/hose, epistaxis Observed to snore while using device: No Current pressure setting perceived as: comfortable On therapy, patient: reports: sleeping better, awakening more refreshed, being more awake and alert during the day, more rested overall. denies: drowsiness while driving Initial [place] Sleepiness Scale score: 11 Current [place] Sleepiness Scale score: 2 Allergies and Home Medications Known drug allergies: Yes (aldactone, hytrin, lotensin, serzone) Home medication list reviewed: Yes Allergy and home medication list: Medication List Medication Name (generic/name brand) Strength & Dosage Warfarin 2.5-5mg tab as directed Amlodipine Besylate 10mg tab daily Metoprolol Succinate ER 50 mg tab two daily losartan 100mg tab daily Hydrochlorothiazide 12.5mg cap one daily Potassium Chloride 20meq tab 1 daily Tamsulosin 0.4mg cap two daily Tramadol 50mg tab as needed Pravastatin Sodium 10mg tab one daily at bedtime Vitamin D3 4000IU one daily CoQ-10 200mg one daily Magnesium 500mg one daily Calcium + D3 + Minerals 600mg daily Tylenol 500mg tab as needed Centrum Silver Multi-Vitamin Tab one daily Allergy List Aldactone Hytrin Lotensin Serzone Review of Systems Review of systems same as previous: No (Crainiotomy subsequent to subdural hematoma - spontaneous / good recovery) Physical Exam Blood Pressure: 118/70 Cuff size: regular Heart Rate: 54 O2 Saturation: 98 Height: 5 ft 8 in Weight (kg): 95.708 kg Weight change since last visit: lost 21 pounds Body Mass Index: 32.1 BMI Classification: Class 1 Impression and Plan 1. Obstructive Sleep Apnea-Hypopnea Syndrome, severe, with good treatment compliance and good apnea control. On CPAP therapy, the patient has better sleep quality and is more rested overall. To reduce oral venting, I will lower his CPAP pressure to [id number]. Since he is planning on losing more weight, I informed him how his CPAP pressure requirements could be reduced with significant weight loss. Symptoms to report for additional pressure adjustment discussed. Patient weight loss has been gradual and may not be needed for quite awhile. AutoCPAP range offered with rationale but declined. For nasal congestion, he is advised to increase humidity. He also can shower at night to wash off allergens and facilitate nasal drainage. In addition, I gave him a sample of saline nasal spray to use prior to CPAP to clean nose of dried secretions. For questions about supplies, I gave him a CPAP supply replacement list and answered questions. He was also given the CPAP device cleaning suggestions to answer his cleaning questions. For his concerns about supplies at present DME, he was in formed that he could transfer to another DME and I will have my summer school coordinator inform him of his options. For his humidity not seeming to work intermittently, I will his humidifier checked for malfunction and repair / replacement at [facility] where he obtained the device. Patient's apnea severity and rationale for treatment to reduce apnea, improve sleep quality and reduce cardiovascular and cerebrovascular events was reviewed. I also reviewed the benefit of consistent device use of CPAP for hypertension, arrhythmia, depression/anxiety. * Change CPAP pressure to 12 cmH2O * Notify me if snoring with mask or feeling that the pressure is too much or too little * Implement methods for reducing nasal congestion. * Take humidifier in to [facility] to be checked for malfunction / repair or replace. * Transfer to new DME after humidifier checked. * Copy of compliance report to patient at check out. * Copy of report sent to patient once completed. * Return for follow up in 1 year, or sooner if concerns arise I spent 100% of this 40 minute visit face to face with the patient with greater than 50% of this was spent time counseling the patient and coordination of care.
== END 2019-02-11 13:20 | disposition home or self-care (01) ==
LOC: SC 13:19
PROVIDERS: ATTEND Nurse Practitioner Family
DX: G47.33 Obstructive sleep apnea (adult) (pediatric) (principal)
CPT/HCPCS: 99215; G0463; 99212

== ENCOUNTER 2019-02-19 10:29 | Outpatient (CLI) | payer MEDICARE, BC | END 2019-02-19 10:30 | disposition home or self-care (01) | LOC: LAB 10:29 | PROVIDERS: ATTEND Internal Medicine | DX: I48.91 Unspecified atrial fibrillation (principal); Z79.01 Long term (current) use of anticoagulants | CPT/HCPCS: 85610 ==

== ENCOUNTER 2019-02-23 09:46 | Outpatient (CLI) | payer MEDICARE, BC ==
[2019-02-23] MEDS ORDERED: IOVERSOL 320 100 ML VIAL IVP ONE ×2 (10:08→17:17)
--- NOTE | 2019-02-24 10:59 | CT Report ---
Reason: RENAL MASS, RENAL CYSTS, BILATERAL Procedure Date: 02/23/2019 Accession Number: [id number] / [id number] Procedure: CT - ABDOMEN/PELVIS W/WO CPT Code: FULL RESULT: EXAM: CT ABDOMEN WITHOUT AND WITH CONTRAST EXAM DATE: 02/23/2019 10:26 AM. CLINICAL HISTORY: RENAL MASS, RENAL CYSTS, BILATERAL. COMPARISONS: ABDOMEN/PELVIS W/ 11/06/2016 9:34 AM ABDOMEN/PELVIS W/O 06/03/2015 3:15 PM. TECHNIQUE: Routine helical imaging was performed through the kidneys, ureters and bladder in the precontrast, postcontrast and delayed phase. IV Contrast: . Reconstructions: Coronal and sagittal. In accordance with CT protocol optimization, one or more of the following dose reduction techniques were utilized for this exam: automated exposure control, adjustment of mA and/or KV based on patient size, or use of iterative reconstructive technique. FINDINGS: Lung Bases: The lung bases are without evidence of a mass or infiltrate. Solid organs: Scattered low density lesions are seen within the liver. The largest in the left lobe measures 2.9 x 2.9 cm (image 11 of series 5). On the previous study it measured 2.4 x 2.0 cm. The largest in the right lobe measures 4.3 x 3.4 cm (image 11 of series 4). On the previous study it measured 3.7 x 3.0 cm. The spleen, pancreas, and adrenal glands are normal in appearance. Kidneys/Bladder: Right Kidney/Ureter: Hemorrhagic cysts are again noted within the right kidney. A complex cyst is noted in the lower pole of the right kidney. It measures 2.9 cm. (Image 41 of series 4). On the previous study measured 3.2 cm. There is no evidence of hydronephrosis. Left Kidney/Ureter: There is an exophytic lesion arising from left kidney. It measures 2.7 cm (image 31 of series 5). On the previous study from 11/06/2016 at measured 2.5 cm. On the previous study from 06/03/2015 measured 2.1 cm. Other hemorrhagic cyst are noted. There is no evidence of hydronephrosis. Peritoneal Cavity/Bowel: There are no dilated loops of bowel to suggest the presence of an obstruction. Vasculature: There is atherosclerosis of the aorta. Bones: There are degenerative changes of the thoracic and lumbar spine. IMPRESSION: Heterogeneous lesion arising from the left kidney with interval increase in size when compared to the previous studies. This may represent a complex cyst or low-grade renal cell carcinoma. Bilateral hemorrhagic renal cysts. Low-density lesions in the liver with interval increase in size. These most likely represent cysts. Atherosclerosis of the aorta. RADIA
== END 2019-02-23 09:47 | disposition home or self-care (01) ==
LOC: DI 09:46
PROVIDERS: ATTEND Nurse Practitioner
DX: N28.9 Disorder of kidney and ureter, unspecified (principal); Q61.02 Congenital multiple renal cysts; K76.9 Liver disease, unspecified; I70.0 Atherosclerosis of aorta
CPT/HCPCS: 74178; Q9967

== ENCOUNTER 2019-02-27 09:45 | Outpatient (CLI) | payer MEDICARE, BC | END 2019-02-27 09:46 | disposition home or self-care (01) | LOC: LAB 09:45 | PROVIDERS: ATTEND Nurse Practitioner | DX: Z79.01 Long term (current) use of anticoagulants (principal) | CPT/HCPCS: 85610 ==

== ENCOUNTER 2019-03-05 11:27 | Outpatient (CLI) | payer MEDICARE, BC | END 2019-03-05 11:28 | disposition home or self-care (01) | LOC: LAB 11:27 | PROVIDERS: ATTEND Nurse Practitioner | DX: Z79.01 Long term (current) use of anticoagulants (principal) | CPT/HCPCS: 85610 ==

== ENCOUNTER 2019-03-13 09:34 | Outpatient (CLI) | payer MEDICARE, BC | END 2019-03-13 09:35 | disposition home or self-care (01) | LOC: LAB 09:34 | PROVIDERS: ATTEND Nurse Practitioner | DX: Z79.01 Long term (current) use of anticoagulants (principal) | CPT/HCPCS: 85610 ==

== ENCOUNTER 2019-03-20 09:57 | Outpatient (CLI) | payer MEDICARE, BC | END 2019-03-20 09:58 | disposition home or self-care (01) | LOC: LAB 09:57 | PROVIDERS: ATTEND Nurse Practitioner | DX: Z79.01 Long term (current) use of anticoagulants (principal) | CPT/HCPCS: 85610 ==

== ENCOUNTER 2019-03-27 10:06 | Outpatient (CLI) | payer MEDICARE, BC | END 2019-03-27 10:07 | disposition home or self-care (01) | LOC: LAB 10:06 | PROVIDERS: ATTEND Nurse Practitioner | DX: Z51.81 Encounter for therapeutic drug level monitoring (principal); Z79.01 Long term (current) use of anticoagulants | CPT/HCPCS: 85610 ==

== ENCOUNTER 2019-04-24 11:02 | Outpatient (CLI) | payer MEDICARE, BC | END 2019-04-24 11:03 | disposition home or self-care (01) | LOC: LAB 11:02 | PROVIDERS: ATTEND Nurse Practitioner | DX: Z79.01 Long term (current) use of anticoagulants (principal) | CPT/HCPCS: 85610 ==

== ENCOUNTER 2019-05-01 11:05 | Outpatient (CLI) | payer MEDICARE, BC | END 2019-05-01 11:06 | disposition home or self-care (01) | LOC: LAB 11:05 | PROVIDERS: ATTEND Nurse Practitioner | DX: Z79.01 Long term (current) use of anticoagulants (principal) | CPT/HCPCS: 85610 ==

== ENCOUNTER 2019-05-09 10:12 | Outpatient (CLI) | payer MEDICARE, BC | END 2019-05-09 10:13 | disposition home or self-care (01) | LOC: LAB 10:12 | PROVIDERS: ATTEND Nurse Practitioner | DX: Z79.01 Long term (current) use of anticoagulants (principal) | CPT/HCPCS: 85610 ==

== ENCOUNTER 2019-05-15 12:55 | Outpatient (CLI) | payer MEDICARE, BC | END 2019-05-15 12:56 | disposition home or self-care (01) | LOC: LAB 12:55 | PROVIDERS: ATTEND Nurse Practitioner | DX: Z79.01 Long term (current) use of anticoagulants (principal) | CPT/HCPCS: 85610 ==

== ENCOUNTER 2019-06-05 10:46 | Outpatient (CLI) | payer MEDICARE, BC ==
[2019-06-05 10:58] LABS: BASOPHILS % (AUTO) 0.3 %; EOSINOPHILS # (AUTO) 0.4 10^3/uL (0.0-0.7); EOSINOPHILS % (AUTO) 6.4 %; HGB - HEMOGLOBIN 13.2 g/dL (14.0-18.0); LYMPHOCYTES # (AUTO) 1.6 10^3/uL (1.5-3.5); LYMPHOCYTES % (AUTO) 24.7 %; MEAN CORPUSCULAR HEMOGLOBIN 27.4 pg (27.0-31.0); MEAN CORPUSCULAR HGB CONC 32.3 g/dL (32.0-36.0); MEAN PLATELET VOLUME 10.1 fL (7.4-11.4); MONOCYTES # (AUTO) 0.4 10^3/uL (0.0-1.0); MONOCYTES % (AUTO) 6.9 %; NEUTROPHILS # (AUTO) 3.9 10^3/uL (1.5-6.6); NEUTROPHILS % (AUTO) 61.4 %; PLT - PLATELET COUNT 179 10^3/uL (130-450); RED BLOOD COUNT 4.81 10^6/uL (4.70-6.10); RED CELL DISTRIBUTION WIDTH 14.1 % (12.0-15.0); WHITE BLOOD COUNT 6.4 x10^3/uL (4.8-10.8)
[2019-06-05 11:21] LABS: ALBUMIN 4.8 g/dL (3.2-5.5); ALBUMIN/GLOBULIN RATIO 1.8 (1.0-2.2); ALKALINE PHOSPHATASE 45 IU/L (42-121); ALT ALANINE AMINOTRANSFERASE 15 IU/L (10-60); AST ASPARTATE AMINOTRANSFERASE 15 IU/L (10-42); BILIRUBIN,TOTAL 0.9 mg/dL (0.2-1.0); BUN - BLOOD UREA NITROGEN 31 mg/dL (6-20); CALCIUM 9.9 mg/dL (8.5-10.3); CARBON DIOXIDE - CO2 29 mmol/L (21-32); CHLORIDE 103 mmol/L (101-111); CHOL/HDL RATIO 4.7 (<5.0); CHOLESTEROL 173 mg/dL; CREATININE 1.1 mg/dL (0.6-1.2); GFR - MDRD 65 (>89); GLUCOSE 101 mg/dL (70-100); HDL CHOLESTEROL 37 mg/dL; LDL CHOLESTEROL,CALCULATED 109 mg/dL; LDL/HDL RATIO 2.9 (<3.6); MAGNESIUM 2.5 mg/dL (1.7-2.8); SODIUM 142 mmol/L (135-145); TOTAL PROTEIN 7.4 g/dL (6.7-8.2); VLDL CHOLESTEROL 27 mg/dL
== END 2019-06-05 10:47 | disposition home or self-care (01) ==
LOC: LAB 10:46
PROVIDERS: ATTEND Nurse Practitioner
DX: N28.89 Other specified disorders of kidney and ureter (principal); I10 Essential (primary) hypertension; E78.5 Hyperlipidemia, unspecified; I48.91 Unspecified atrial fibrillation; Z79.01 Long term (current) use of anticoagulants; D64.9 Anemia, unspecified
CPT/HCPCS: 36415; 80053; 80061; 83721; 83735; 85025

== ENCOUNTER 2019-06-12 09:52 | Outpatient (CLI) | payer MEDICARE, BC | END 2019-06-12 09:53 | disposition home or self-care (01) | LOC: LAB 09:52 | PROVIDERS: ATTEND Nurse Practitioner | DX: Z79.01 Long term (current) use of anticoagulants (principal) | CPT/HCPCS: 85610 ==

== ENCOUNTER 2019-06-20 09:53 | Outpatient (CLI) | payer MEDICARE, BC | END 2019-06-20 09:54 | disposition home or self-care (01) | LOC: LAB 09:53 | PROVIDERS: ATTEND Nurse Practitioner | DX: Z79.01 Long term (current) use of anticoagulants (principal) | CPT/HCPCS: 36415; 85610 ==

== ENCOUNTER 2019-06-29 08:36 | Outpatient (CLI) | payer MEDICARE, BC | END 2019-06-29 08:37 | disposition home or self-care (01) | LOC: LAB 08:36 | PROVIDERS: ATTEND Nurse Practitioner | DX: Z79.01 Long term (current) use of anticoagulants (principal) | CPT/HCPCS: 85610 ==

== ENCOUNTER 2019-06-30 12:55 | Outpatient (CLI) | payer MEDICARE, BC | END 2019-06-30 12:56 | disposition home or self-care (01) | LOC: NS 12:55 | PROVIDERS: ATTEND Family Medicine | DX: Z71.3 Dietary counseling and surveillance (principal); R73.02 Impaired glucose tolerance (oral); I10 Essential (primary) hypertension; E78.5 Hyperlipidemia, unspecified | CPT/HCPCS: 97802 ==

== ENCOUNTER 2019-07-06 10:18 | Outpatient (CLI) | payer MEDICARE, BC | END 2019-07-06 10:19 | disposition home or self-care (01) | LOC: LAB 10:18 | PROVIDERS: ATTEND Nurse Practitioner | DX: Z79.01 Long term (current) use of anticoagulants (principal) | CPT/HCPCS: 85610 ==

== ENCOUNTER 2019-07-13 10:35 | Outpatient (CLI) | payer MEDICARE, BC | END 2019-07-13 10:36 | disposition home or self-care (01) | LOC: LAB 10:35 | PROVIDERS: ATTEND Nurse Practitioner | DX: Z79.01 Long term (current) use of anticoagulants (principal) | CPT/HCPCS: 85610 ==

== ENCOUNTER 2019-07-16 13:28 | Outpatient (CLI) | payer MEDICARE, BC | END 2019-07-16 13:29 | disposition home or self-care (01) | LOC: LAB 13:28 | PROVIDERS: ATTEND Nurse Practitioner | DX: Z79.01 Long term (current) use of anticoagulants (principal) | CPT/HCPCS: 85610 ==

== ENCOUNTER 2019-07-24 11:29 | Outpatient (CLI) | payer MEDICARE, BC | END 2019-07-24 11:30 | disposition home or self-care (01) | LOC: LAB 11:29 | PROVIDERS: ATTEND Nurse Practitioner | DX: Z79.01 Long term (current) use of anticoagulants (principal) | CPT/HCPCS: 85610 ==

== ENCOUNTER 2019-08-05 09:27 | Outpatient (CLI) | payer MEDICARE, BC | END 2019-08-05 09:28 | disposition home or self-care (01) | LOC: LAB 09:27 | PROVIDERS: ATTEND Nurse Practitioner | DX: Z79.01 Long term (current) use of anticoagulants (principal) | CPT/HCPCS: 85610 ==

== ENCOUNTER 2019-08-12 08:14 | Outpatient (CLI) | payer MEDICARE, BC | END 2019-08-12 08:15 | disposition home or self-care (01) | LOC: LAB 08:14 | PROVIDERS: ATTEND Nurse Practitioner | DX: Z79.01 Long term (current) use of anticoagulants (principal) | CPT/HCPCS: 85610 ==

== ENCOUNTER 2019-08-19 10:46 | Outpatient (CLI) | payer MEDICARE, BC | END 2019-08-19 10:47 | disposition home or self-care (01) | LOC: LAB 10:46 | PROVIDERS: ATTEND Nurse Practitioner | DX: Z79.01 Long term (current) use of anticoagulants (principal) | CPT/HCPCS: 85610 ==

== ENCOUNTER 2019-08-26 09:31 | Outpatient (CLI) | payer MEDICARE, BC | END 2019-08-26 09:32 | disposition home or self-care (01) | LOC: LAB 09:31 | PROVIDERS: ATTEND Nurse Practitioner | DX: Z79.01 Long term (current) use of anticoagulants (principal) | CPT/HCPCS: 85610 ==

== ENCOUNTER 2019-09-02 09:29 | Outpatient (CLI) | payer MEDICARE, BC | END 2019-09-02 09:30 | disposition home or self-care (01) | LOC: LAB 09:29 | PROVIDERS: ATTEND Nurse Practitioner | DX: Z79.01 Long term (current) use of anticoagulants (principal) | CPT/HCPCS: 85610 ==

== ENCOUNTER 2019-09-09 11:38 | Outpatient (CLI) | payer MEDICARE, BC | END 2019-09-09 11:39 | disposition home or self-care (01) | LOC: LAB 11:38 | PROVIDERS: ATTEND Nurse Practitioner | DX: Z79.01 Long term (current) use of anticoagulants (principal) | CPT/HCPCS: 85610 ==

== ENCOUNTER 2019-12-14 11:22 | Outpatient (CLI) | payer MEDICARE, BC ==
--- NOTE | 2019-12-14 12:21 | SLEEP CARE CONSULTATION ---
Information from patient questionnaire entered by Valeria Spears. I have reviewed and concur with the information entered by Valeria Spears. This document represents the service I personally performed and the decisions made by me, Aydee Ellison, RN, MSN, PRIMARY CARE PHYSICIAN. History of Present Illness Service Date and Time: 12/14/2019 1122 Previous diagnosis: Severe, Obstructive Sleep Apnea-Hypopnea Syndrome AHI: 48.8 (in 2014)(74.3 in 2005) Reason for follow up: annual (last seen 2018) Equipment type: CPAP Equipment obtained from: [facility] [employer] (getting supplies as needed) Mask style: Nasal pillows Mask brand: Respironics Backup mask available: No (keep old mask as spare when replaced) Last cushion change: a month Prior sleep studies: Yes Year and Where: 2014 - [facility] , 2005 - [facility] in [place], [place] Type of Sleep Study: Polysomnography CPAP Compliance Data - Data Reviewed with Patient Average duration of nightly device use: 5.95 Compliance rate %: 91.1 (180 days) Current pressure setting (cmH2O): 12 Humidity settin Heated hose settin Average residual AHI: 1.2 Average large leak: 37 sec Subjective Patient concerns: reports: nasal congestion (better recently - showering at night helps ), dry mouth, nose, throat (dry mouth), other (He will occasionally take off CPAP if too dry as uncomfortable. ). denies: aerophagia, mask discomfort, air blowing in eyes, mask leak noise, condensation in mask/hose, epistaxis Observed to snore while using device: No Current pressure setting perceived as: comfortable On therapy, patient: reports: sleeping better, awakening more refreshed, being more awake and alert during the day, more rested overall. denies: drowsiness while driving Initial [place] Sleepiness Scale score: 11 (in 2008) Current [place] Sleepiness Scale score: 7 Allergies and Home Medications Known drug allergies: Yes (see list ) Home medication list reviewed: Yes (no changes except stopped warfarin) Review of Systems Review of systems same as previous: No (Watchman procedure - since off warfarin /afib better controlled with diet) Physical Exam Blood Pressure: 128/60 Cuff size: long Heart Rate: 53 O2 Saturation: 98 Height: 5 ft 7 in Weight: 217 lb 3.2 oz Body Mass Index: 34.0 BMI Classification: Obese Impression and Plan 1. Obstructive Sleep Apnea-Hypopnea Syndrome, severe, with good treatment compliance and good apnea control. On CPAP therapy, the patient has better sleep quality and is more rested overall. Because patient has significant apnea in all positions of sleep, if unable to use CPAP due to illness of lack of electricity or illness, patient advised to raise head of bed 30-40 degrees to decrease some apnea risk. Oral dryness can be reduced by adjusting humidity setting higher. Patient reports that his humidifier does not always use water even at higher settings intermittently so I will have it checked for malfunction and repaired/ replaced. Patient advised that chronic oral dryness can affect dental health and advised to follow up with dentist. In addition, there are oral dryness products that can be used to reduce dryness. Patient to discuss best option with dentist. Nasal congestion can also be reduced with his higher humidity. He has lost and gained weight. He would like to lose more weight but unsure how much. Thus I will adjust his pressure to [id number] with rationale explained. Patient wonders if his CPAP is due for update, he is to check with [facility]. Process discussed if updated. Patient to contact me if pressure change not comfort. Patient's apnea severity and rationale for treatment to reduce apnea, improve sleep quality and reduce cardiovascular and cerebrovascular events was reviewed. I also reviewed the benefit of consistent device use of CPAP for hypertension, cardiac disease, arrhythmia, diabetes, . * Check if due for new CPAP yet. * Check humidifier for malfunction * Change auto CPAP pressure to 10-12 cmH2O * Notify me if snoring with mask or feeling that the pressure is too much or too little * Attempt to lose weight * Call this office if any problems using CPAP * Return for follow up in 1 year , or sooner if concerns arise Visit Type: In Office Time Spent with Patient (minutes): 30 Provider Statement: I spent 100% of the Face to Face Visit with the patient with greater than 50% spent counseling the patient and coordination of care.
[2019-12-14 12:22] VITALS: BP 128/60
== END 2019-12-14 11:23 | disposition home or self-care (01) ==
LOC: SC 11:22
PROVIDERS: ATTEND Nurse Practitioner Family
DX: G47.33 Obstructive sleep apnea (adult) (pediatric) (principal); Z68.34 Body mass index [BMI] 34.0-34.9, adult
CPT/HCPCS: 99214; G0463; 99212

== ENCOUNTER 2019-12-27 09:12 | Outpatient (CLI) | payer MEDICARE, BC ==
[2019-12-27 10:07] LABS: ALBUMIN 4.4 g/dL (3.2-5.5); ALBUMIN/GLOBULIN RATIO 2.1 (1.0-2.2); BILIRUBIN,TOTAL 1.1 mg/dL (0.2-1.0); CALCIUM 9.3 mg/dL (8.5-10.3); CREATININE 1.1 mg/dL (0.6-1.2); TOTAL PROTEIN 6.5 g/dL (6.7-8.2)
== END 2019-12-27 09:13 | disposition home or self-care (01) ==
LOC: LAB 09:12
PROVIDERS: ATTEND Nurse Practitioner
DX: R73.02 Impaired glucose tolerance (oral) (principal); Z86.010 Personal history of colon polyps
CPT/HCPCS: 36415; 80053; 82274

== ENCOUNTER 2020-05-13 07:35 | Day surgery (SDC) | payer MEDICARE, BC ==
[2020-05-13] MEDS ORDERED: fentaNYL 250 MCG/5 ML VIAL IVP ONE (07:36)
[2020-05-13] MEDS ORDERED: MIDAZOLAM 2 MG/2 ML VIAL IVP ONE (07:36)
[2020-05-13] MEDS ORDERED: LACTATED RINGERS 1,000 ML IV ONE ×2 (08:15→09:15)
[2020-05-13 09:33] VITALS: BP 102/66
== END 2020-05-13 07:36 | disposition home or self-care (01) ==
LOC: SDS 07:35
PROVIDERS: ATTEND Surgery
PROC: 0DBM8ZZ Excision of Descending Colon, Via Natural or Artificial Opening Endoscopic (ICD-10-PCS; 2020-05-13)
PROC: 0DBK8ZZ Excision of Ascending Colon, Via Natural or Artificial Opening Endoscopic (ICD-10-PCS; principal; 2020-05-13 08:45)
DX: Z12.11 Encounter for screening for malignant neoplasm of colon (principal); D12.2 Benign neoplasm of ascending colon; D12.4 Benign neoplasm of descending colon; I48.91 Unspecified atrial fibrillation
CPT/HCPCS: 45380; J3010; J7120

== ENCOUNTER 2020-09-23 10:31 | Outpatient (CLI) | payer MEDICARE, BC ==
[2020-09-23 10:46] LABS: BASOPHILS % (AUTO) 0.4 %; EOSINOPHILS # (AUTO) 0.3 10^3/uL (0.0-0.7); EOSINOPHILS % (AUTO) 5.1 %; HCT - HEMATOCRIT 40.5 % (42.0-52.0); HGB - HEMOGLOBIN 13.5 g/dL (14.0-18.0); LYMPHOCYTES # (AUTO) 1.3 10^3/uL (1.5-3.5); LYMPHOCYTES % (AUTO) 23.3 %; MEAN CORPUSCULAR HEMOGLOBIN 27.2 pg (27.0-31.0); MEAN CORPUSCULAR HGB CONC 33.3 g/dL (32.0-36.0); MEAN CORPUSCULAR VOLUME 81.5 fL (80.0-94.0); MEAN PLATELET VOLUME 8.9 fL (7.4-11.4); MONOCYTES # (AUTO) 0.5 10^3/uL (0.0-1.0); MONOCYTES % (AUTO) 8.8 %; NEUTROPHILS # (AUTO) 3.4 10^3/uL (1.5-6.6); PLT - PLATELET COUNT 160 10^3/uL (130-450); RED BLOOD COUNT 4.97 10^6/uL (4.70-6.10); RED CELL DISTRIBUTION WIDTH 14.3 % (12.0-15.0); WHITE BLOOD COUNT 5.5 x10^3/uL (4.8-10.8)
[2020-09-23 11:07] LABS: ALBUMIN 4.6 g/dL (3.2-5.5); ALBUMIN/GLOBULIN RATIO 1.6 (1.0-2.2); ALKALINE PHOSPHATASE 39 IU/L (42-121); ALT ALANINE AMINOTRANSFERASE 18 IU/L (10-60); AST ASPARTATE AMINOTRANSFERASE 15 IU/L (10-42); BILIRUBIN,TOTAL 0.5 mg/dL (0.2-1.0); BUN - BLOOD UREA NITROGEN 24 mg/dL (6-20); CALCIUM 9.4 mg/dL (8.5-10.3); CARBON DIOXIDE - CO2 26 mmol/L (21-32); CHLORIDE 108 mmol/L (101-111); CHOLESTEROL 147 mg/dL; GFR - MDRD 73 (>89); GLUCOSE 111 mg/dL (70-100); HDL CHOLESTEROL 37 mg/dL; LDL CHOLESTEROL,CALCULATED 85 mg/dL; LDL/HDL RATIO 2.3 (<3.6); POTASSIUM 3.8 mmol/L (3.5-5.0); SODIUM 141 mmol/L (135-145); TOTAL PROTEIN 7.4 g/dL (6.7-8.2); TRIGLYCERIDES 124 mg/dL; VLDL CHOLESTEROL 25 mg/dL
[2020-09-23 11:19] LABS: THYROID STIMULATING HORMONE 2.35 uIU/mL (0.34-5.60)
[2020-09-23 12:24] LABS: ESTIMATED AVERAGE GLUCOSE 100 mg/dL (70-100); HEMOGLOBIN A1c% 5.1 % (4.27-6.07)
== END 2020-09-23 10:32 | disposition home or self-care (01) ==
LOC: LAB 10:31
PROVIDERS: ATTEND Nurse Practitioner
DX: N28.1 Cyst of kidney, acquired (principal); I48.91 Unspecified atrial fibrillation; R73.02 Impaired glucose tolerance (oral); I10 Essential (primary) hypertension; E78.5 Hyperlipidemia, unspecified; D64.9 Anemia, unspecified
CPT/HCPCS: 36415; 80053; 80061; 83036; 83721; 84443; 85025

== ENCOUNTER 2020-11-22 14:25 | Outpatient (CLI) | payer MEDICARE, BC ==
--- NOTE | 2020-11-22 15:14 | SLEEP CARE CONSULTATION ---
Information from patient questionnaire entered by Valeria Spears. I have reviewed and concur with the information entered by Valeria Spears. This document represents the service I personally performed and the decisions made by , Macie Carvajal ARNP. History of Present Illness Service Date and Time: 11/22/2020 1425 Previous diagnosis: Severe, Obstructive Sleep Apnea-Hypopnea Syndrome AHI: 48.8 (in 2014)(74.3 in 2005) Reason for follow up: annual (last seen 11/2019) Equipment type: CPAP Equipment obtained from: [facility] (no longer giving supplies) Mask style: Nasal pillows Backup mask available: No (maybe) Last cushion change: few months Prior sleep studies: Yes Year and Where: 2014 - [facility]; 2005 - [facility] in [facility] additional information: VIANCA ERAZO was diagnosed to have severe, AHI 48.8, obstructive sleep apnea- hypopnea syndrome and returned today for CPAP therapy annual follow-up. CPAP Compliance Data - Data Reviewed with Patient Average duration of nightly device use: 6 hr 46 min Compliance rate %: 96.1 (180 days) Current pressure setting (cmH2O): 10-12 Humidity settin Heated hose settin Average residual AHI: 1.2 Average large leak: 1 min 31 sec Subjective Missed days of use due to: reports: illness Patient concerns: reports: dry mouth, nose, throat (has not had it for a few months, thinks it is resolved). denies: aerophagia, mask discomfort, air blowing in eyes, mask leak noise, condensation in mask/hose, nasal congestion, epistaxis, other Observed to snore while using device: No Current pressure setting perceived as: too low (thinks it should start higher, otherwise okay) On therapy, patient: reports: sleeping better, awakening more refreshed, being more awake and alert during the day, more rested overall. denies: drowsiness while driving Initial [place] Sleepiness Scale score: 11 (in 2008) Current [place] Sleepiness Scale score: 9 Allergies and Home Medications Home medication list reviewed: Yes Allergy and home medication list: Myrbetriq 25 mg q day Finisteride 5 mg q day Review of Systems Review of systems same as previous: No (Watchman procedure Jul 31 2019, implant) Physical Exam Heart Rate: 66 O2 Saturation: 98 Height: 5 ft 8 in Weight: 220 lb Body Mass Index: 33.4 BMI Classification: Obese Impression and Plan 1. Obstructive Sleep Apnea-Hypopnea Syndrome, severe, with good treatment compliance and good apnea control. On CPAP therapy, the patient has better sleep quality and is more rested overall. Patient would like to update his CPAP machine that is over 5 years old and of reasonable use and transfer to a new DME for supplies. He used to be with [facility] but has not been able to get supplies since they closed down. Patient was notified that another DME can be used and new CPAP ordered. I will have my bariatric coordinator inform of DME options. A DWO prescription will then be made. Patient advised to contact this office if further supply problems. Patient's apnea severity and rationale for treatment to reduce apnea, improve sleep quality and reduce cardiovascular and cerebrovascular events was reviewed. I also reviewed the benefit of consistent device use of CPAP for hypertension, cardiac disease, arrhythmia, and diabetes. * Change auto CPAP pressure to 11-12 cmH2O * Transfer DME * Update machine * Notify me if snoring with mask or feeling that the pressure is too much or too little * Attempt to lose weight * Call this office if any problems using CPAP * Return for follow up one month after getting new machine, or sooner if concerns arise Counseling Topics: Spare mask, Weight loss health impact Visit Type: In Office Time Spent with Patient (minutes): 21 Provider Statement: I spent 100% of the Face to Face Visit with the patient with greater than 50% spent counseling the patient and coordination of care.
== END 2020-11-22 14:26 | disposition home or self-care (01) ==
LOC: SC 14:25
PROVIDERS: ATTEND Nurse Practitioner Family
DX: G47.33 Obstructive sleep apnea (adult) (pediatric) (principal); E66.9 Obesity, unspecified; Z68.33 Body mass index [BMI] 33.0-33.9, adult
CPT/HCPCS: 99213; G0463; 99212

== ENCOUNTER 2020-12-08 08:39 | Emergency (ER) | payer MEDICARE, BC ==
--- NOTE | 2020-12-08 08:58 | ED Physician Documentation ---
PD HPI HEENT - Stated complaint Stated Complaint: BLOOD IN EAR - History obtained from History obtained from: Patient - History of Present Illness Timing - onset: Today (he awoke with some blood on his pillow and noted it came from left ear. Also feeling pressure left side of head the past few days and concerned since he had subdural that needed surgery in 2019. No recent trauma.) Timing - details: Abrupt onset, Now resolved (does not seem to be still bleeding.). No: Still present Location: Left ear Associated symptoms: Other (he denies use of qtips nor other injury/scratching of ear canal.). 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) Endocrine/Autoimmune: None GI: Ulcers : Benign prostate hypertrophy, Other HEENT: None Psych: Depression, Claustrophobia Musculoskeletal: None Derm: None - Past Surgical History Past Surgical History: Yes General: Appendectomy, Colonoscopy Ortho: Knee replacement Neuro: Craniotomy HEENT: Tonsil/Adenoidectomy - Present Medications Home Medications: Ambulatory Orders Medication Instructions Recorded Confirmed Potassium Chloride [K-Dur] 30 meq PO QAM 04/20/13 01/29/19 Pravastatin Sodium 10 mg PO HS 04/20/13 01/29/19 amLODIPine [Norvasc] 10 mg PO HS 04/20/13 01/29/19 Metoprolol Succinate 50 mg ORAL DAILY 05/20/13 01/29/19 Tamsulosin [Flomax] 0.8 mg PO DAILY 06/03/15 01/29/19 Ondansetron HCl [Zofran] 4 mg PO Q6H PRN #10 tablet 05/01/16 01/29/19 hydroCHLOROthiazide 12.5 mg PO DAILY 12/22/18 01/29/19 [Hydrochlorothiazide] traMADol [Ultram] 50 mg PO Q4-6H PRN 12/22/18 01/29/19 Losartan Potassium 100 mg PO DAILY 01/29/19 01/29/19 Ciprofloxacin/Hydrocortisone 4 drops LEFTEAR TID 5 Days #1 12/08/20 [Cipro Hc Otic Suspension] bottle - Allergies Allergies/Adverse Reactions: Allergies Allergy/AdvReac Type Severity Reaction Status Date / Time benazepril Allergy unknown Verified 01/05/19 21:52 nefazodone [Nefazodone] Allergy unknown Verified 01/05/19 21:52 spironolactone Allergy unknown Verified 01/05/19 21:52 terazosin [Terazosin] Allergy unknown Verified 01/05/19 21:52 codeine [Codeine] AdvReac Nausea Verified 01/05/19 21:52 - Social History Does the pt smoke?: No Smoking Status: Never smoker Does the pt drink ETOH?: No Does the pt have substance abuse?: No - Immunizations Immunizations are current?: Yes - POLST Patient has POLST: No PD ED PE NORMAL - Vitals Vital signs reviewed: Yes - General General: Alert and oriented X 3, No acute distress, Well developed/nourished - HEENT HEENT: Moist mucous membranes, Pharynx benign, Other (scalp without skin lesions, redness, tenderness. Prior skull irregularity c/w surgery.). No: Ears normal (right ear normal. Left TM is normal without rupture nor any blood medial canal. Lateral ear canal with small irritation and dried blood about 6 oclock position. Does not appear erosive. Mild redness in the area. No notable swelling. ) - Neck Neck: Supple, no meningeal sign, No adenopathy - Cardiac Cardiac: RRR, No murmur - Respiratory Respiratory: Clear bilaterally Results - Vitals Vitals: Vital Signs - 24 hr 12/08/20 12/08/20 09:09 10:07 Temperature 36.3 C L Heart Rate 56 L 50 L Respiratory 16 16 Rate Blood Pressure 148/82 H 142/72 H O2 Saturation 98 96 Oxygen O2 Source Room air - Rads (name of study) head CT Radiology: Prelim report reviewed (prior surgical skull changes. No ICH. ), See rad report PD MEDICAL DECISION MAKING - ED course Complexity details: considered differential (seems like small abrasion with bleeding, but he had not scratched it. mild redness. Consider local infection. Does not appear erosive, but consider re-exam in 1-2 weeks to ensure appears okay. If still irregular, might consider needing biopsy or such. ), d/w patient Departure - Departure Disposition: 01 Home, Self Care Clinical Impression: Pressure in head, Hemorrhage of ear canal Otitis externa Qualifiers: Otitis externa type: unspecified type Chronicity: acute Laterality: left Qualified Code(s): H60.502 - Unspecified acute noninfective otitis externa, left ear Condition: Stable Record reviewed to determine appropriate education?: Yes Instructions: ED Otitis Externa Follow-Up: Ibis El DO [Primary Care Provider] - Prescriptions: Ciprofloxacin/Hydrocortisone [Cipro Hc Otic Suspension] 4 drops LEFTEAR TID 5 Days #1 bottle Comments: Your head CT is normal without any signs of subdural bleeding or swelling. No other acute process. The bleeding from your ear relates to an irritation in the outer part of the ear canal. It does look likely to be a small local infection. Use the Ciprodex eardrops 3 times a day for the next 5 or 6 days. That should take care of the irritation and infection. There may be small amount of blood at times from the ear but it does not look like it should bleed briskly again. Follow-up with your primary care in the next 1 or 2 weeks for recheck to ensure that is healed well and does not have an underlying skin lesion. It does not appear erosive at this time. Discharge Date/Time: 12/08/20 10:11
--- NOTE | 2020-12-08 10:03 | CT Report ---
PROCEDURE: HEAD WO INDICATIONS: prior subdural with surgery; head pressure days TECHNIQUE: Noncontrast 4.5 mm thick angled axial sections acquired from the foramen magnum to the vertex. For r adiation dose reduction, the following was used: automated exposure control, adjustment of mA and/or kV according to patient size. COMPARISON: CT head dated 01/29/2019 FINDINGS: Image quality: Excellent. CSF spaces: Basal cisterns are patent. No extra-axial fluid collections. Ventricles are normal in size and shape. Brain: No midline shift. No intracranial masses or hemorrhage. Moran-white matter interface is norm al. Postsurgical changes related to left craniotomy as before. Sinuses: Bilateral ethmoid air cell opacification. Sinuses and mastoids are clear. IMPRESSION: No acute intracranial process. Bilateral ethmoid sinus disease. This appears stable to slightly improved since prior study. Postsurgical changes as before Reviewed by: Benjamín Gallardo MD on 12/08/2020 10:02 AM PDT Approved by: Benjamín Gallardo MD on 12/08/2020 10:02 AM PDT Station ID: [id number]
[2020-12-08 10:08] VITALS: BP 142/72
== END 2020-12-08 10:11 | disposition home or self-care (01) ==
LOC: ED 08:39
DX: H60.502 Unspecified acute noninfective otitis externa, left ear (principal); H92.22 Otorrhagia, left ear; R51.9 Headache, unspecified; I10 Essential (primary) hypertension; I48.91 Unspecified atrial fibrillation
CPT/HCPCS: 99284

== ENCOUNTER 2021-03-22 10:48 | Outpatient (CLI) | payer MEDICARE, BC ==
--- NOTE | 2021-03-22 11:21 | SLEEP CARE CONSULTATION ---
Information from patient questionnaire entered by Fiona Del Rio. I have reviewed and concur with the information entered by Fiona Del Rio. This document represents the service I personally performed and the decisions made by , Macie Carvajal ARNP. History of Present Illness Service Date and Time: 03/22/2021 1048 Previous diagnosis: Severe, Obstructive Sleep Apnea-Hypopnea Syndrome AHI: 48.8 (in 2014)(74.3 in 2005) Reason for follow up: first compliance after device update Equipment type: CPAP Equipment obtained from: [facility] (getting supplies as needed) Mask style: Nasal pillows Backup mask available: Yes (old mask) Last cushion change: 1 month Prior sleep studies: Yes Year and Where: 2014 - [facility]; 2005 - [facility] in [place], [place] Type of Sleep Study: Polysomnography HPI additional information: VIANCA ERAZO was diagnosed to have severe, AHI 48.8, obstructive sleep apnea- hypopnea syndrome and returned today for CPAP therapy first compliance after updating device follow-up. Sleep Study - Results Prior sleep studies: Yes Year and Where: 2014 - [facility]; 2005 - [facility] in [place], [place] CPAP Compliance Data - Data Reviewed with Patient Average duration of nightly device use: 6 hours 13 minutes Compliance rate %: 100 Current pressure setting (cmH2O): 11-12 Humidity settin Heated hose settin Average residual AHI: 1.2 Central apnea: 0.2 Obstructive apnea: 0.0 Hypopnea: 1.0 Average large leak: 1 minute 12 seconds Subjective Patient concerns: reports: dry mouth, nose, throat (on occasion, not really an issue). denies: aerophagia, mask discomfort, air blowing in eyes, mask leak noise, condensation in mask/hose, nasal congestion, epistaxis, other Observed to snore while using device: No Current pressure setting perceived as: comfortable On therapy, patient: reports: sleeping better, awakening more refreshed, being more awake and alert during the day, more rested overall. denies: drowsiness while driving Initial [place] Sleepiness Scale score: 11 (in 2008) Current [place] Sleepiness Scale score: 7 Allergies and Home Medications Home medication list reviewed: Yes (Muscle relaxant) Review of Systems Review of systems same as previous: No (back strain) Physical Exam Heart Rate: 60 O2 Saturation: 97 Height: 5 ft 8 in Weight: 225 lb Weight change since last visit: 5 pound gain Body Mass Index: 34.2 BMI Classification: Obese Impression and Plan 1. Obstructive Sleep Apnea-Hypopnea Syndrome, severe, with excellent treatment compliance and good apnea control. On CPAP therapy, the patient has better sleep quality and is more rested overall. Patient is very happy with new machine and feels the pressure setting is comfortable. He did strain his back when he was unable to use his recall device. He is now able to sleep in his bed again and has been using muscle relaxants to help with his back pain. He does not feel it is improving and may follow-up on this with his doctor. Patient has a new diet that he is trying and feels he has been losing weight. Patient gained 5 pounds since last visit. Patient was encouraged to continue to try to lose weight for his overall health and to help reduce apneas. Patient's apnea severity and rationale for treatment to reduce apnea, improve sleep quality and reduce cardiovascular and cerebrovascular events was reviewed. I also reviewed the benefit of consistent device use of CPAP for hypertension, cardiac disease, arrhythmia, and diabetes. * Continue auto CPAP pressure at 11-12 cmH2O * Notify me if snoring with mask or feeling that the pressure is too much or too little * Attempt to lose weight * Call this office if any problems using CPAP * Return for follow up in 1 year, or sooner if concerns arise Counseling Topics: Spare mask, Weight loss health impact Visit Type: In Office Time Spent with Patient (minutes): 21 Provider Statement: I spent 100% of the Face to Face Visit with the patient with greater than 50% spent counseling the patient and coordination of care.
== END 2021-03-22 10:49 | disposition home or self-care (01) ==
LOC: SC 10:48
PROVIDERS: ATTEND Nurse Practitioner Family
DX: G47.33 Obstructive sleep apnea (adult) (pediatric) (principal); E66.9 Obesity, unspecified; Z68.34 Body mass index [BMI] 34.0-34.9, adult
CPT/HCPCS: 99213; G0463; 99212

== ENCOUNTER 2021-05-22 15:04 | Outpatient (CLI) | payer MEDICARE, BC ==
[2021-05-22 21:19] LABS: ALBUMIN 4.4 g/dL (3.2-5.5); ALBUMIN/GLOBULIN RATIO 1.6 (1.0-2.2); BILIRUBIN,TOTAL 0.9 mg/dL (0.2-1.0); CALCIUM 9.5 mg/dL (8.5-10.3); CREATININE 0.9 mg/dL (0.6-1.2); POTASSIUM 4.1 mmol/L (3.5-5.0); TOTAL PROTEIN 7.2 g/dL (6.7-8.2)
[2021-05-22 22:02] LABS: ESTIMATED AVERAGE GLUCOSE 103 mg/dL (70-100); HEMOGLOBIN A1c% 5.2 % (4.27-6.07)
== END 2021-05-22 23:59 | disposition home or self-care (01) ==
LOC: LAB.WCP 15:04
PROVIDERS: ATTEND Nurse Practitioner
DX: R73.03 Prediabetes (principal); N40.1 Benign prostatic hyperplasia with lower urinary tract symptoms
CPT/HCPCS: 36415; 80053; 83036; 84153

== ENCOUNTER 2021-08-17 14:03 | Outpatient (CLI) | payer MEDICARE, BC ==
--- NOTE | 2021-08-17 14:48 | SLEEP CARE CONSULTATION ---
Information from patient questionnaire entered by Kayla Stapleton MA. I have reviewed and concur with the information entered by Kayla Stapleton MA. This document represents the service I personally performed and the decisions made by , Macie Carvajal ARNP. History of Present Illness Service Date and Time: 08/17/2021 1403 Previous diagnosis: Severe, Obstructive Sleep Apnea-Hypopnea Syndrome AHI: 48.8 (in 2014)(74.3 in 2005) Reason for follow up: other (4 MONTH F/U, ISSUES SLEEPING,) Equipment type: Dental Appliance Equipment obtained from: Other ([facility]; getting supplies as needed) Mask style: Nasal pillows Backup mask available: Yes (old mask) Last cushion change: 2 weeks Prior sleep studies: Yes Year and Where: 2014 - [facility]; 2005 - [facility] in [place], [place] Type of Sleep Study: Polysomnography HPI additional information: VIANCA ERAZO was diagnosed to have severe, AHI 48.8, obstructive sleep apnea- hypopnea syndrome and returned today with partner for CPAP therapy 4 month follow-up. Sleep Study - Results Type of Sleep Study: Polysomnography Prior sleep studies: Yes Year and Where: 2014 - [facility]; 2005 - [facility] in [place], [place] CPAP Compliance Data - Data Reviewed with Patient Average duration of nightly device use: 6 HOURS 3 MINUTES Compliance rate %: 94.4 Current pressure setting (cmH2O): 11-12 Humidity settin Heated hose settin Average residual AHI: 0.9 Average large leak: 1 MINUTE Subjective Missed days of use due to: reports: other (pain in legs) Patient concerns: reports: dry mouth, nose, throat (improved with new machine). denies: aerophagia, mask discomfort, air blowing in eyes, mask leak noise, condensation in mask/hose, nasal congestion, epistaxis, other Observed to snore while using device: No Current pressure setting perceived as: comfortable On therapy, patient: reports: sleeping better, awakening more refreshed, being more awake and alert during the day, more rested overall. denies: drowsiness while driving Initial [place] Sleepiness Scale score: 11 (in 2008) Current [place] Sleepiness Scale score: 9 (2021) Allergies and Home Medications Drug allergies reviewed: Yes (see list in chart) Home medication list reviewed: Yes (Myrbetriq, Finasteride; see scanned list) Allergy and home medication list: Allergies benazepril Allergy (Verified 01/05/19 21:52) unknown nefazodone [Nefazodone] Allergy (Verified 01/05/19 21:52) unknown spironolactone Allergy (Verified 01/05/19 21:52) unknown terazosin [Terazosin] Allergy (Verified 01/05/19 21:52) unknown codeine [Codeine] Adverse Reaction (Verified 01/05/19 21:52) Nausea Review of Systems Review of systems same as previous: Yes (no changes) Physical Exam Vital signs obtained and entered by: MACRINA Stapleton Blood Pressure: 138/70 (RIGHT, PULSE 61, RESP 16,) Cuff size: wrist Heart Rate: 56 O2 Saturation: 97 (N95) Height: 5 ft 8 in Weight: 224 lb Body Mass Index: 34.0 BMI Classification: Obese Impression and Plan 1. Obstructive Sleep Apnea-Hypopnea Syndrome, severe, with good treatment compliance and excellent apnea control. On CPAP therapy, the patient has better sleep quality and is more rested overall. Patient comes in with concerns about his sleep patterns. He states when the recall happened he started sleeping out on his recliner with his head elevated since he did not want to use the recalled machine. He has since received a replacement CPAP and returned to his bed to sleep. Unfortunately, he has developed some pain in his legs that will wake him up after 5 to 6 hours of sleep. He will have to return to the recliner to sleep without the CPAP because he does not have pain in his legs when sitting in the chair. He states he used to be able to go to sleep about midnight and now he cannot get to sleep until 2:00 in the morning. This will cause him to want to sleep in. He would like to be up at 7:30 am. Patient is requesting a short-term prescription for sleep medicine to help him reset his sleep schedule. I discussed with him that I would like him to try for him to use an oyru-yak-fdeizlm nighttime aid like Tylenol PM and to limit his naps to no more than 30 minutes. He has been taking naps up to 2 hours in the afternoon which also contributes to him not being able to go to sleep on time. He also has a habit of checking his emails and things on the computer and I discussed with him about limiting his screen time prior to bed, stopping altogether about 1 hour prior to bedtime. He voiced understanding and agreement with this plan of care. Patient's apnea severity and rationale for treatment to reduce apnea, improve sleep quality and reduce cardiovascular and cerebrovascular events was reviewed. I also reviewed the benefit of consistent device use of CPAP for hypertension, cardiac disease, arrhythmia and diabetes. 2. Obesity, unspecified. Currently patients BMI is 34.0. Obesity increases the risk of apnea, CPAP pressure requirements and overall health risks especially cardiovascular and diabetes. Thus patient is advised to lose weight. Weight loss can be done with reducing portion size, reducing refined foods and balancing content with vegetables, fruit and whole grain foods. In addition, patient encouraged to get regular exercise. * Continue auto CPAP pressure at 11-12 cmH2O * Limit screen time 1 hour before bed * Try over the counter tylenol pm * Notify me if snoring with mask or feeling that the pressure is too much or too little * Attempt to lose weight * Call this office if any problems using CPAP * Return for follow up in 1 year, or sooner if concerns arise Counseling Topics: Spare mask, Weight loss health impact Visit Type: In Office Time Spent with Patient (minutes): 27 Provider Statement: I spent 100% of the Face to Face Visit with the patient with greater than 50% spent counseling the patient and coordination of care.
[2021-08-17 14:49] VITALS: BP 138/70
== END 2021-08-17 14:04 | disposition home or self-care (01) ==
LOC: SC 14:03
PROVIDERS: ATTEND Nurse Practitioner Family
DX: G47.33 Obstructive sleep apnea (adult) (pediatric) (principal); E66.9 Obesity, unspecified; Z68.34 Body mass index [BMI] 34.0-34.9, adult
CPT/HCPCS: 99213; G0463; 99212

== ENCOUNTER 2021-11-09 08:00 | Outpatient (CLI) | payer MEDICARE, BC ==
[2021-11-09 10:12] LABS: BASOPHILS % (AUTO) 0.4 %; EOSINOPHILS # (AUTO) 0.4 10^3/uL (0.0-0.7); EOSINOPHILS % (AUTO) 8.4 %; HCT - HEMATOCRIT 40.2 % (42.0-52.0); HGB - HEMOGLOBIN 13.2 g/dL (14.0-18.0); LYMPHOCYTES # (AUTO) 1.4 10^3/uL (1.5-3.5); LYMPHOCYTES % (AUTO) 27.4 %; MEAN CORPUSCULAR HEMOGLOBIN 27.4 pg (27.0-31.0); MEAN CORPUSCULAR HGB CONC 32.8 g/dL (32.0-36.0); MEAN CORPUSCULAR VOLUME 83.4 fL (80.0-94.0); MEAN PLATELET VOLUME 9.5 fL (7.4-11.4); MONOCYTES # (AUTO) 0.5 10^3/uL (0.0-1.0); MONOCYTES % (AUTO) 8.6 %; NEUTROPHILS # (AUTO) 2.9 10^3/uL (1.5-6.6); PLT - PLATELET COUNT 148 10^3/uL (130-450); RED BLOOD COUNT 4.82 10^6/uL (4.70-6.10); RED CELL DISTRIBUTION WIDTH 14.7 % (12.0-15.0); WHITE BLOOD COUNT 5.3 x10^3/uL (4.8-10.8)
[2021-11-09 10:27] LABS: ALBUMIN 4.3 g/dL (3.2-5.5); ALBUMIN/GLOBULIN RATIO 1.7 (1.0-2.2); ALKALINE PHOSPHATASE 39 IU/L (42-121); ALT ALANINE AMINOTRANSFERASE 16 IU/L (10-60); AST ASPARTATE AMINOTRANSFERASE 15 IU/L (10-42); BILIRUBIN,TOTAL 0.8 mg/dL (0.2-1.0); BUN - BLOOD UREA NITROGEN 28 mg/dL (6-20); CALCIUM 9.5 mg/dL (8.5-10.3); CARBON DIOXIDE - CO2 26 mmol/L (21-32); CHLORIDE 105 mmol/L (101-111); CHOL/HDL RATIO 3.9 (<5.0); CHOLESTEROL 142 mg/dL; GFR - MDRD 73 (>89); GLUCOSE 106 mg/dL (70-100); HDL CHOLESTEROL 36 mg/dL; LDL CHOLESTEROL,CALCULATED 70 mg/dL; LDL/HDL RATIO 1.9 (<3.6); POTASSIUM 4.2 mmol/L (3.5-5.0); SODIUM 142 mmol/L (135-145); TOTAL PROTEIN 6.9 g/dL (6.7-8.2); TRIGLYCERIDES 179 mg/dL; VLDL CHOLESTEROL 36 mg/dL
[2021-11-09 20:11] LABS: ESTIMATED AVERAGE GLUCOSE 105 mg/dL (70-100); HEMOGLOBIN A1c% 5.3 % (4.27-6.07)
== END 2021-11-09 23:59 | disposition home or self-care (01) ==
LOC: LAB 08:00
PROVIDERS: ATTEND Nurse Practitioner
DX: I10 Essential (primary) hypertension (principal); E78.5 Hyperlipidemia, unspecified; R73.03 Prediabetes; M79.605 Pain in left leg
CPT/HCPCS: 36415; 80053; 80061; 83036; 83721; 85025; 85379

== ENCOUNTER 2021-11-09 11:25 | Emergency (ER) | payer MEDICARE, BC ==
--- OUTSIDE RECORDS SUMMARY | 2021-11-09 11:42 | EXTERNAL MEDICAL SUMMARY RPT | Continuity of Care Document ---
:1945 Author Organization [facility] [address] [place] [address] Phone Care Team Providers Name Role Phone Rose Unavailable Unavailable Allergies No information. Encounters No information. Medications No information. Problems date description facility [id number] Cyst of kidney, acquired [facility] al Results No information.
--- NOTE | 2021-11-09 14:19 | Ultrasound Report ---
PROCEDURE: Duplex Ext Veins Left INDICATIONS: leg pain and swelling TECHNIQUE: Real-time imaging, as well as color and pulse Doppler interrogation, were performed of the lower extr emity deep veins from the inguinal ligament to the popliteal fossa. COMPARISON: None. FINDINGS: The deep veins are normally compressible, and free of intraluminal thrombus. Color and pu lse Doppler demonstrate normal phasic intraluminal flow. There is normal augmentation response to di stal compression maneuver. IMPRESSION: No deep venous thrombosis. Reviewed by: Florence Abdi MD on 11/09/2021 2:18 PM PDT Approved by: Florence Abdi MD on 11/09/2021 2:18 PM PDT Station ID: [id number]
--- NOTE | 2021-11-09 14:22 | ED Physician Documentation ---
History of Present Illness - Stated complaint Stated Complaint: LT LEG PX/IRREG LABS - Chief complaint Chief Complaint: Ext Problem - History obtained from History obtained from: Patient - History of Present Illness Timing: How many weeks ago (several weeks) Pain level max: 5 Pain level now: 0 - Additonal information Additional information: 76-year-old male presents to the emergency department complaining of left leg pain. He states that it occurs in the morning after waking up from sleep. It is on the lateral aspect of the left leg near the fibular head. Nothing makes it worse. Gradually resolves throughout the day. No calf pain or tenderness. He was seen at a walk-in clinic and told he had an elevated D-dimer and was sent here for ultrasound to r/o DVT Review of Systems Constitutional: denies: Fever, Chills GI: denies: Vomiting, Diarrhea Skin: denies: Rash Musculoskeletal: denies: Neck pain, Back pain Neurologic: denies: Headache PD PAST MEDICAL HISTORY - Past Medical History Cardiovascular: Hypertension, High cholesterol, Atrial fibrillation Respiratory: Sleep apnea, CPAP use Neuro: Other (subdural hematoma 2019 with surgery) Endocrine/Autoimmune: None GI: Ulcers : Benign prostate hypertrophy, Other HEENT: None Psych: Depression, Claustrophobia Musculoskeletal: None Derm: None - Past Surgical History Past Surgical History: Yes General: Appendectomy, Colonoscopy Ortho: Knee replacement Neuro: Craniotomy HEENT: Tonsil/Adenoidectomy - Present Medications Home Medications: Ambulatory Orders Medication Instructions Recorded Confirmed Potassium Chloride [K-Dur] 30 meq PO QAM 04/20/13 01/29/19 Pravastatin Sodium 10 mg PO HS 04/20/13 01/29/19 amLODIPine [Norvasc] 10 mg PO HS 04/20/13 01/29/19 Metoprolol Succinate 50 mg ORAL DAILY 05/20/13 01/29/19 Tamsulosin [Flomax] 0.8 mg PO DAILY 06/03/15 01/29/19 ondansetron HCL [Zofran] 4 mg PO Q6H PRN #10 tablet 05/01/16 01/29/19 hydroCHLOROthiazide 12.5 mg PO DAILY 12/22/18 01/29/19 [Hydrochlorothiazide] traMADol [Ultram] 50 mg PO Q4-6H PRN 07/08/19 08/15/19 Losartan Potassium 100 mg PO DAILY 01/29/19 01/29/19 Ciprofloxacin/Hydrocortisone 4 drops LEFTEAR TID 5 Days #1 12/08/20 [Cipro Hc Otic Suspension] bottle - Allergies Allergies/Adverse Reactions: Allergies Allergy/AdvReac Type Severity Reaction Status Date / Time benazepril Allergy unknown Verified 11/09/21 11:34 nefazodone [Nefazodone] Allergy unknown Verified 11/09/21 11:34 spironolactone Allergy unknown Verified 11/09/21 11:34 terazosin [Terazosin] Allergy unknown Verified 11/09/21 11:34 codeine [Codeine] AdvReac Nausea Verified 11/09/21 11:34 - Social History Does the pt smoke?: No Smoking Status: Never smoker Does the pt drink ETOH?: No Does the pt have substance abuse?: No - Immunizations Immunizations are current?: Yes - POLST Patient has POLST: No PD ED PE NORMAL - Vitals Vital signs reviewed: Yes - General General: Alert and oriented X 3, No acute distress - HEENT HEENT: Moist mucous membranes - Neck Neck: Supple, no meningeal sign - Cardiac Cardiac: RRR - Respiratory Respiratory: No respiratory distress, Clear bilaterally - Derm Derm: Warm and dry - Extremities Extremities: No edema, No calf tenderness / cord, Other (Mild effusion to the left knee. Neurovascular intact. ACL, MCL, PCL, LCL are intact.) - Neuro Neuro: Alert and oriented X 3 Results - Vitals Vitals: Vital Signs - 24 hr 11/09/21 11/09/21 11:30 13:34 Temperature 36.0 C L 36.5 C Heart Rate 63 60 Respiratory 16 16 Rate Blood Pressure 167/72 H 140/70 H O2 Saturation 95 96 Oxygen O2 Source Room air - Rads (name of study) Duplex ultrasound left lower extremity Radiology: Final report received, EMP read contemporaneously, See rad report (No DVT) PD MEDICAL DECISION MAKING - ED course Complexity details: reviewed results, re-evaluated patient, considered differential, d/w patient, d/w family ED course: Patient sent here for an ultrasound to rule out DVT by his PCP. Negative ultrasound. I did review his lab work and his D-dimer was as negative as well. Possible peroneal nerve irritation when he sleeps? He does have a small joint effusion in the left knee as well. This could be causing some of his symptoms. Patient counseled regarding signs and symptoms for which I believe and urgent re-evaluation would be necessary. Patient with good understanding of and agreement to plan and is comfortable going home at this time This document was made in part using voice recognition software. While efforts are made to proofread this document, sound alike and grammatical errors may occur. Departure - Departure Disposition: 01 Home, Self Care Clinical Impression: Knee effusion, left Leg pain Qualifiers: Laterality: left Qualified Code(s): M79.605 - Pain in left leg Condition: Good Instructions: ED Effusion Knee, ED Acute Pain [facility] Follow-Up: Caryn Rose ARNP [Primary Care Provider] - Within 1 week Comments: Please follow-up with your doctor for further care. Return if you worsen. You do have a small knee effusion on examination today. You do not have any evidence of a deep vein thrombosis today. Your ultrasound is negative. Discharge Date/Time: 11/09/21 14:31
[2021-11-09 14:29] VITALS: BP 140/70
== END 2021-11-09 14:31 | disposition home or self-care (01) ==
LOC: ED 11:25
DX: M25.462 Effusion, left knee (principal); I10 Essential (primary) hypertension; I48.91 Unspecified atrial fibrillation
CPT/HCPCS: 36415; 80053; 80061; 83036; 83721; 85025; 85379; 99282; 99284

== ENCOUNTER 2022-03-20 17:11 | Outpatient (CLI) | payer MEDICARE, BC ==
--- NOTE | 2022-03-21 10:59 | Ultrasound Report ---
PROCEDURE: Testicle INDICATIONS: SWELLING LEFT SCROTUM TECHNIQUE: Real-time scanning was performed of the scrotum and testicles, with image documentation. Color and p ulse Doppler interrogation was performed of both testicles. COMPARISON: None. FINDINGS: Right: Testicle is normal in size at 5 x 3.3 x 3.6 cm, and homogenous in echotexture. There is tubu lar ectasia of the rete testis. Epididymis is normal in overall size and morphology. A 0.7 cm epididy mal cyst. Mild hydrocele. Mild right varicocele. Overlying scrotal skin is normal in thickness. Left: Testicle is normal in size at 4.8 x 2.6 x 3.1 cm, and homogeneous in echotexture. . Tubular e ctasia of the rete testis. Epididymis is normal in overall size and morphology. 1.[address] Mild hydrocele. Mild left varicocele. Overlying scrotal skin is normal in thickness. Doppler: Color and pulse Doppler demonstrate normal and symmetric arterial flow in both testicles. IMPRESSION: 1.No sonographic signs of testicular torsion or epididymitis. 2.Mild bilateral varicoceles. 3.Mild bilateral hydroceles. 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 Reviewed by: Monico Kelley MD on 03/21/2022 10:57 AM PDT Approved by: Monico Kelley MD on 03/21/2022 10:57 AM PDT Station ID: [id number]
== END 2022-03-20 17:12 | disposition home or self-care (01) ==
LOC: DI 17:11
PROVIDERS: ATTEND Urology
DX: I86.1 Scrotal varices (principal); N43.3 Hydrocele, unspecified; N50.89 Other specified disorders of the male genital organs

== ENCOUNTER 2022-04-25 15:32 | Outpatient (CLI) | payer MEDICARE, BC ==
--- NOTE | 2022-04-25 20:04 | Ultrasound Report ---
PROCEDURE: Testicle INDICATIONS: HYDROCELE, UNSPECIFIED TECHNIQUE: Real-time scanning was performed of the scrotum and testicles, with image documentation. Color and p ulse Doppler interrogation was performed of both testicles. COMPARISON: March 20, 2022. FINDINGS: Right: Testicle is normal in size at 5.1 x 2.3 x 3.4 cm, and homogenous in echotexture. Dilated rete testes is seen. Epididymis is normal in overall size and morphology. Small right epididymal head cys t is seen. There is small right-sided hydrocele. No varicoceles. Overlying scrotal skin is normal in thickness. Left: Testicle is normal in size at 4.3 x 2.4 x 3.4 cm, and heterogeneous in echotexture. Dilated r ete testes is noted. 8 x 8 x 5 mm simple cyst is seen in left testes. Epididymis is normal in overall size and morphology. Multiple small left epididymal cysts are seen measures up to 8 x 5 x 7 mm in si ze. Small left-sided hydrocele is seen. Left-sided varicocele is seen. Overlying scrotal skin is norm al in thickness. Left scrotal swelling is seen with a left inguinal hernia containing fat only measures 3.2 x 3.1 cm i n size. Doppler: Color and pulse Doppler demonstrate normal and symmetric arterial flow in both testicles. IMPRESSION: 1. Slightly heterogeneous left testicular parenchymal echotexture. Bilateral dilated rete testes. No solid-appearing testicular lesion. Simple cyst in left testes as above. 2. Small bilateral hydroceles and small left-sided varicoceles. 3. No evidence of testicular torsion. 4. Small bilateral epididymal cysts as above. 5. Left scrotal swelling with fat containing left inguinal hernia. Reviewed by: Van Vincent MD on 04/25/2022 8:03 PM PST Approved by: Van Vincent MD on 04/25/2022 8:03 PM PST Station ID: [id number]
== END 2022-04-25 15:33 | disposition home or self-care (01) ==
LOC: DI 15:32
PROVIDERS: ATTEND Urology
DX: N43.3 Hydrocele, unspecified (principal); N50.3 Cyst of epididymis; K40.90 Unilateral inguinal hernia, without obstruction or gangrene, not specified as recurrent; N44.2 Benign cyst of testis

== ENCOUNTER 2022-09-05 14:03 | Outpatient (CLI) | payer MEDICARE, BC ==
[2022-09-05 14:44] VITALS: BP 128/68
--- NOTE | 2022-09-05 14:44 | SLEEP CARE CONSULTATION ---
Information from patient questionnaire entered by Kailee Maciel. I have reviewed and concur with the information entered by Kailee Maciel. This document represents the service I personally performed and the decisions made by me, Macie Carvajal ARNP. History of Present Illness Service Date and Time: 09/05/2022 1403 Previous diagnosis: Severe, Obstructive Sleep Apnea-Hypopnea Syndrome AHI: 48.8 (in 2014)(74.3 in 2005) Reason for follow up: annual (LAST SEEN 08/2021) Accompanied by: Partner Equipment type: CPAP (LEHMAN Dreamstation 2 s/u 02/15/2021) Equipment obtained from: Other ([facility]; getting supplies as needed) Mask style: Nasal pillows Backup mask available: Yes (old mask) Last cushion change: 3 weeks Prior sleep studies: Yes Year and Where: 2014 - [facility]; 2005 - [facility] in [place], [place] Type of Sleep Study: Polysomnography HPI additional information: VIANCA ERAZO was diagnosed to have severe, AHI 48.8, obstructive sleep apnea- hypopnea syndrome and returned today for CPAP therapy annual follow-up. Sleep Study - Results Type of Sleep Study: Polysomnography Prior sleep studies: Yes Year and Where: 2014 - [facility]; 2005 - [facility] in [place], [place] CPAP Compliance Data - Data Reviewed with Patient Average duration of nightly device use: 6 hours 33 minutes Compliance rate %: 86.1 (155/180 days used) Current pressure setting (cmH2O): 11-12 Average residual AHI: 1.2 Central apnea: 0.1 Obstructive apnea: 0.1 Hypopnea: 1 Average large leak: 18 secs Subjective Missed days of use due to: reports: illness (at [place] time) Patient concerns: reports: air blowing in eyes (minor), dry mouth, nose, throat (minor). denies: aerophagia, mask discomfort, mask leak noise, condensation in mask/hose, nasal congestion, epistaxis Observed to snore while using device: No Current pressure setting perceived as: comfortable On therapy, patient: reports: sleeping better, awakening more refreshed, being more awake and alert during the day, more rested overall. denies: drowsiness while driving Initial [place] Sleepiness Scale score: 11 (in 2008) Current [place] Sleepiness Scale score: 11 (09/05/22) Allergies and Home Medications Known drug allergies: Yes (as listed) Drug allergies reviewed: Yes Home medication list reviewed: Yes (Lasix and Triamterine; stopped amlodipine and HCTZ) Allergy and home medication list: Allergies benazepril Allergy (Verified 09/04/22 13:45) unknown nefazodone [Nefazodone] Allergy (Verified 09/04/22 13:45) unknown spironolactone Allergy (Verified 09/04/22 13:45) unknown terazosin [Terazosin] Allergy (Verified 09/04/22 13:45) unknown codeine [Codeine] Adverse Reaction (Verified 09/04/22 13:45) Nausea Review of Systems Review of systems same as previous: No (L inguinal hernia, L hydrocele and variocele) Physical Exam Vital signs obtained and entered by: KAILEE Arriaga MA Blood Pressure: 128/68 (LEFT ARM) Cuff size: regular Heart Rate: 55 O2 Saturation: 97 Height: 5 ft 8 in Weight: 238 lb 12.8 oz Body Mass Index: 36.3 BMI Classification: Obese Impression and Plan 1. Obstructive Sleep Apnea-Hypopnea Syndrome, severe, with good treatment compliance and good apnea control. On CPAP therapy, the patient has better sleep quality and is more rested overall. Patient has significant improvement of their sleep apnea and is satisfied with current CPAP therapy. Patient states he has very minor mouth dryness. I reviewed his settings and his humidifier is set at 1. He asked me to increase it to 2 to see if this will help with his minor oral dryness. I made this adjustment online for him. Patient's apnea severity and rationale for treatment to reduce apnea, improve sleep quality and reduce cardiovascular and cerebrovascular events was reviewed. I also reviewed the benefit of consistent device use of CPAP for hypertension, cardiac disease, arrhythmia and diabetes. 2. Obesity, unspecified. Currently patients BMI is 36.3. Obesity increases the risk of apnea, CPAP pressure requirements and overall health risks especially cardiovascular and diabetes. Thus patient is advised to lose weight. The patient's CPAP pressure range should accommodate some weight loss. * Continue auto CPAP pressure at 11-12 cmH2O * Update supplies * Notify me if snoring with mask or feeling that the pressure is too much or too little * Attempt to lose weight * Call this office if any problems using CPAP * Return for follow up in 1 year, or sooner if concerns arise Counseling Topics: Spare mask, Weight loss health impact Visit Type: In Office Time Spent with Patient (minutes): 21 Provider Statement: I spent 100% of the Face to Face Visit with the patient with greater than 50% spent counseling the patient and coordination of care.
== END 2022-09-05 14:04 | disposition home or self-care (01) ==
LOC: SC 14:03
PROVIDERS: ATTEND Nurse Practitioner Family
DX: G47.33 Obstructive sleep apnea (adult) (pediatric) (principal); E66.9 Obesity, unspecified; Z68.36 Body mass index [BMI] 36.0-36.9, adult
CPT/HCPCS: 99213; G0463; 99212

== ENCOUNTER 2022-09-19 14:02 | Outpatient (CLI) | payer MEDICARE, BC ==
[2022-09-19 14:33] LABS: CALCIUM 9.4 mg/dL (8.5-10.3); CREATININE 1.3 mg/dL (0.6-1.2); POTASSIUM 4.2 mmol/L (3.5-5.0)
== END 2022-09-19 14:03 | disposition home or self-care (01) ==
LOC: LAB 14:02
PROVIDERS: ATTEND Internal Medicine Cardiovascular Disease
DX: I10 Essential (primary) hypertension (principal)
CPT/HCPCS: 36415; 80048

== ENCOUNTER 2023-02-08 09:54 | Emergency (ER) | payer MEDICARE, BC ==
[2023-02-08 10:13] LABS: BASOPHILS % (AUTO) 0.3 %; EOSINOPHILS # (AUTO) 0.4 10^3/uL (0.0-0.7); EOSINOPHILS % (AUTO) 6.3 %; HCT - HEMATOCRIT 38.6 % (42.0-52.0); HGB - HEMOGLOBIN 12.6 g/dL (14.0-18.0); LYMPHOCYTES # (AUTO) 1.8 10^3/uL (1.5-3.5); LYMPHOCYTES % (AUTO) 26.2 %; MEAN CORPUSCULAR HEMOGLOBIN 27.3 pg (27.0-31.0); MEAN CORPUSCULAR HGB CONC 32.6 g/dL (32.0-36.0); MEAN CORPUSCULAR VOLUME 83.5 fL (80.0-94.0); MEAN PLATELET VOLUME 9.5 fL (7.4-11.4); MONOCYTES # (AUTO) 0.5 10^3/uL (0.0-1.0); MONOCYTES % (AUTO) 7.3 %; NEUTROPHILS # (AUTO) 4.1 10^3/uL (1.5-6.6); NEUTROPHILS % (AUTO) 59.6 %; PLT - PLATELET COUNT 159 10^3/uL (130-450); RED BLOOD COUNT 4.62 10^6/uL (4.70-6.10); WHITE BLOOD COUNT 6.8 x10^3/uL (4.8-10.8)
[2023-02-08 10:30] LABS: TROPONIN I HIGH SENSITIVITY 6.2 ng/L (2.3-19.7)
[2023-02-08 10:31] LABS: ALBUMIN 4.6 g/dL (3.2-5.5); ALBUMIN/GLOBULIN RATIO 1.6 (1.0-2.2); BILIRUBIN,TOTAL 0.5 mg/dL (0.2-1.0); CREATININE 1.4 mg/dL (0.6-1.3); POTASSIUM 4.3 mmol/L (3.5-4.5); TOTAL PROTEIN 7.4 g/dL (6.4-8.9)
--- NOTE | 2023-02-08 10:47 | XRAY Report ---
PROCEDURE: Chest 1 View X-Ray INDICATIONS: Chest pain TECHNIQUE: One view of the chest was acquired. COMPARISON: None. FINDINGS: Surgical changes and devices: None. Lungs and pleura: No pleural effusions or pneumothorax. Lungs are clear. Mediastinum: Mediastinal contours appear normal. Heart size is normal. Bones and chest wall: No suspicious bony lesions. Overlying soft tissues appear unremarkable. IMPRESSION: No acute cardiopulmonary process. Reviewed by: Patrick Wen MD on 02/08/2023 10:45 AM PDT Approved by: Patrick Wen MD on 02/08/2023 10:45 AM PDT Station ID: [id number]
--- NOTE | 2023-02-08 10:54 | ED Physician Documentation ---
PD HPI CHEST PAIN - Stated complaint Stated Complaint: IRREGULAR PULSE - Chief complaint Chief Complaint: Cardiac - History obtained from History obtained from: Patient, Family - Additional information Additional information: The patient comes to the emergency department chief complaint of "I feel like my A-fib is acting up again". He states he has a history of atrial fibrillation but had the Watchman procedure done a few years ago and has not had any issue with A-fib since. The patient states that he began to feel around 9:00 this morning that he suddenly was having some palpitations and did not feel quite right. 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 The patient states that he is not currently on any medications for A-fib, either for rhythm or rate control or for anticoagulation, because he has had such good response to the watchman. 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 No other complaints at this time. PD PAST MEDICAL HISTORY - Past Medical History Cardiovascular: Hypertension, High cholesterol, Atrial fibrillation Respiratory: Sleep apnea, CPAP use Neuro: Other (subdural hematoma 2019 with surgery) Endocrine/Autoimmune: None GI: Ulcers : Benign prostate hypertrophy, Other HEENT: None Psych: Depression, Claustrophobia Musculoskeletal: None Derm: None - Past Surgical History Past Surgical History: Yes General: Appendectomy, Colonoscopy Ortho: Knee replacement Neuro: Craniotomy HEENT: Tonsil/Adenoidectomy - Present Medications Home Medications: Ambulatory Orders Medication Instructions Recorded Confirmed Potassium Chloride [K-Dur] 30 meq PO QAM 04/20/13 02/08/23 Pravastatin Sodium 10 mg PO HS 04/20/13 02/08/23 Tamsulosin [Flomax] 0.4 mg PO DAILY 06/03/15 02/08/23 Losartan Potassium 100 mg PO DAILY 01/29/19 02/08/23 Furosemide [Lasix] See Rx Instructions .ROUTE .COMPLEX 09/05/22 02/08/23 Aspirin [[place]] 81 mg PO DAILY 02/08/23 02/08/23 Cholecalciferol [Vitamin D3] 4,000 unit PO DAILY 02/08/23 02/08/23 Cyanocobalamin [Vitamin B-12] 500 mcg PO DAILY 02/08/23 02/08/23 Finasteride [Proscar] 5 mg PO DAILY 02/08/23 02/08/23 Magnesium Oxide [Magnesium] 500 mg PO DAILY 02/08/23 02/08/23 Mirabegron [Myrbetriq] 25 mg PO DAILY 02/08/23 02/08/23 Sertraline [Zoloft] 50 mg PO DAILY 02/08/23 02/08/23 Triamterene/Hdyrochlor 37.5/ 1 cap PO DAILY 02/08/23 02/08/23 [Dyazide] Ubidecarenone [Co Q-10] 200 mg PO DAILY 02/08/23 02/08/23 Vitamin B Complex 1 tab PO DAILY 02/08/23 02/08/23 carvediloL [Coreg] 6.25 mg PO BID 02/08/23 02/08/23 - Allergies Allergies/Adverse Reactions: Allergies Allergy/AdvReac Type Severity Reaction Status Date / Time benazepril Allergy unknown Verified 02/08/23 10:06 nefazodone [Nefazodone] Allergy unknown Verified 02/08/23 10:06 spironolactone Allergy unknown Verified 02/08/23 10:06 terazosin [Terazosin] Allergy unknown Verified 02/08/23 10:06 codeine [Codeine] AdvReac Nausea Verified 02/08/23 10:06 - Social History Does the pt smoke?: No Smoking Status: Never smoker Does the pt drink ETOH?: No Does the pt have substance abuse?: No - Immunizations Immunizations are current?: Yes - POLST Patient has POLST: No PD ED PE NORMAL - Vitals Vital signs reviewed: Yes - General General: Alert and oriented X 3, No acute distress, Well developed/nourished - HEENT HEENT: Atraumatic, PERRL, EOMI, Moist mucous membranes - Neck Neck: Supple, no meningeal sign - Cardiac Cardiac: RRR, No murmur - Respiratory Respiratory: No respiratory distress, Clear bilaterally - Abdomen Abdomen: Soft, Non tender, Non distended - Derm Derm: Normal color, Warm and dry, No rash - Extremities Extremities: No deformity, No edema - Neuro Neuro: Alert and oriented X 3, 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 Relevant findings are: Rate: Rate (enter#) (75) Rhythm: Atrial fibrillation [place]: LAD (Borderline) QRS: Normal Ischemia: Normal ST segments Compare to prior EKG: Old EKG unavailable Computer interpretation: Agree with computer - Labs Labs: Laboratory Tests 02/08/23 02/08/23 10:00 10:00 WBC 6.8 RBC 4.62 L Hgb 12.6 L Hct 38.6 L MCV 83.5 MCH 27.3 MCHC 32.6 RDW 15.0 Plt Count 159 MPV 9.5 Neut # (Auto) 4.1 Lymph # (Auto) 1.8 [place] # (Auto) 0.5 Eos # (Auto) 0.4 Baso # (Auto) 0.0 Absolute Nucleated RBC 0.00 Nucleated RBC % 0.0 Sodium 140 Potassium 4.3 Chloride 106 Carbon Dioxide 26 Anion Gap 8.0 BUN 36 H Creatinine 1.4 H Estimated GFR (MDRD) 49 L Glucose 125 H Calcium 10.0 Total Bilirubin 0.5 AST 13 ALT 12 Alkaline Phosphatase 46 Troponin I High Sens 6.2 Total Protein 7.4 Albumin 4.6 Globulin 2.8 Albumin/Globulin Ratio 1.6 Lipase 28 PD Medical Decision Making - ED course Complexity details: reviewed results, re-evaluated patient, considered differential, d/w patient ED course: The patient was given a liter of IV fluid and worked up with labs and EKG. He was initially found to be in atrial fibrillation with normal heart rate. His BUN and creatinine were mildly elevated and I did suspect some degree of volume contraction the patient, particularly considering that he is also on Lasix. By the time of the end of my interview with the patient, he had spontaneously converted to normal sinus rhythm. Given that this is the only episode of atrial fibrillation that he has had since his Watchman 3 years ago, I do not feel he should be started on any further medication at this point in time. He is going to call Dr. Bro's office to see if he can get a sooner appointment for follow-up. We discussed the usual indications for return. Departure - Departure Disposition: 01 Home, Self Care Clinical Impression: Paroxysmal atrial fibrillation Condition: Stable Instructions: Atrial Fibrillation Dc Comments: Your labs look fairly good today. Your heart rhythm has converted back to normal on its own, which is good. Hopefully will not have any further episodes, but if you do, you as long as your heart rate is below the 120s, you can try just resting and seeing if it goes away on its own. However, if you have a heart rate that is sustained in the 120s or higher, or if you experience chest pain, shortness of breath, or lightheadedness/fainting, you should come to the emergency department. Additionally, if you remain in atrial fibrillation for longer than a few hours, you should come to the ED. If you begin to have recurrent episodes of atrial fibrillation again, you should call Dr. Bro's office and see if they want to see you sooner. Otherwise, you may continue your plans to follow-up with him in March. Forms: PCP List Discharge Date/Time: 02/08/23 11:10
[2023-02-08 11:16] VITALS: BP 124/68; O2SAT 97
== END 2023-02-08 11:10 | disposition home or self-care (01) ==
LOC: ED 09:54
DX: I48.0 Paroxysmal atrial fibrillation (principal)
CPT/HCPCS: 36415; 80053; 83690; 84484; 85025; 93005; 99283; 99284

== ENCOUNTER 2023-04-08 10:24 | Outpatient (CLI) | payer MEDICARE, BC ==
[2023-04-08 10:59] LABS: ALBUMIN 4.5 g/dL (3.2-5.5); ALBUMIN/GLOBULIN RATIO 1.8 (1.0-2.2); ALKALINE PHOSPHATASE 45 IU/L (42-121); ALT ALANINE AMINOTRANSFERASE 12 IU/L (10-60); AST ASPARTATE AMINOTRANSFERASE 11 IU/L (10-42); BILIRUBIN,TOTAL 0.5 mg/dL (0.2-1.0); BUN - BLOOD UREA NITROGEN 35 mg/dL (6-20); CALCIUM 10.1 mg/dL (8.5-10.3); CARBON DIOXIDE - CO2 29 mmol/L (21-32); CHLORIDE 105 mmol/L (101-111); CHOL/HDL RATIO 4.2 (<5.0); CHOLESTEROL 143 mg/dL; CREATININE 1.6 mg/dL (0.6-1.3); GFR - MDRD 42 (>89); GLUCOSE 105 mg/dL (74-104); HDL CHOLESTEROL 34 mg/dL; LDL CHOLESTEROL,CALCULATED 43 mg/dL; LDL/HDL RATIO 1.3 (<3.6); POTASSIUM 4.3 mmol/L (3.5-4.5); SODIUM 140 mmol/L (135-145); TRIGLYCERIDES 329 mg/dL (48-352); VLDL CHOLESTEROL 66 mg/dL
[2023-04-08 12:14] LABS: ESTIMATED AVERAGE GLUCOSE 105 mg/dL (70-100); HEMOGLOBIN A1c% 5.3 % (4.27-6.07)
== END 2023-04-08 10:25 | disposition home or self-care (01) ==
LOC: LAB 10:24
PROVIDERS: ATTEND Nurse Practitioner
DX: I10 Essential (primary) hypertension (principal); N28.1 Cyst of kidney, acquired; R73.03 Prediabetes; E78.5 Hyperlipidemia, unspecified
CPT/HCPCS: 36415; 80053; 80061; 83036; 83721

== ENCOUNTER 2023-04-29 14:46 | Outpatient (CLI) | payer MEDICARE, BC | END 2023-04-29 14:47 | disposition home or self-care (01) | LOC: LAB 14:46 | PROVIDERS: ATTEND Physician Assistant Medical | DX: Z12.5 Encounter for screening for malignant neoplasm of prostate (principal) | CPT/HCPCS: 36415; G0103; 84153 ==

== ENCOUNTER 2023-09-06 14:03 | Outpatient (CLI) | payer MEDICARE, BC ==
--- NOTE | 2023-09-06 14:53 | Sleep Patient Instructions ---
Sleep Center Visit Summary - Patient Visit Information Reason for Visit: Annual follow-up - Patient Instructions Additional Instructions: You will continue with CPAP therapy with pressure set at 11-12 cmH2O. A supply prescription will be updated with your DME. We encourage you to continue to try to lose weight. Please follow up with the sleep care office in 1 year. - Clinic Information Contact: [facility] [address] [place] [address] [email or web address] T: [phone]
--- NOTE | 2023-09-06 15:17 | SLEEP CARE CONSULTATION ---
Information from patient questionnaire entered by Kailee Maciel. I have reviewed and concur with the information entered by Kailee Maciel. This document represents the service I personally performed and the decisions made by , Macie Carvajal ARNP. History of Present Illness Service Date and Time: 09/06/2023 1403 Previous diagnosis: Severe, Obstructive Sleep Apnea-Hypopnea Syndrome AHI: 48.8 (in 2014)(74.3 in 2005) Reason for follow up: annual (LAST SEEN 08/2022) Accompanied by: Partner (Keshav) Equipment type: CPAP (LEHMAN Dreamstation 2 s/u 02/15/2021) Equipment obtained from: Other ([facility]; getting supplies as needed) Mask style: Nasal pillows Backup mask available: Yes Last cushion change: few weeks Prior sleep studies: Yes Year and Where: 2014 - [facility]; 2005 - [facility] in [place], [place] Type of Sleep Study: Polysomnography HPI additional information: VIANCA ERAZO was diagnosed to have severe, AHI 48.8, obstructive sleep apnea- hypopnea syndrome and returned today for CPAP therapy annual follow-up. Sleep Study - Results Type of Sleep Study: Polysomnography Prior sleep studies: Yes Year and Where: 2014 - [facility]; 2005 - [facility] in [place], [place] CPAP Compliance Data - Data Reviewed with Patient Average duration of nightly device use: 4 HRS 42 MINS 28 SECS Compliance rate %: 68.8 (09/03/22-09/02/23; 271/365 days used) Current pressure setting (cmH2O): 11-12 Average residual AHI: 0.7 Central apnea: 0 Obstructive apnea: 0.1 Hypopnea: 0.6 Average large leak: 1 mins 50 secs Subjective Missed days of use due to: reports: other (CPAP recall and formaldehyde) Patient concerns: reports: dry mouth, nose, throat (occasional dry mouth). denies: aerophagia, mask discomfort, air blowing in eyes, mask leak noise, condensation in mask/hose, nasal congestion, epistaxis Observed to snore while using device: No Current pressure setting perceived as: comfortable On therapy, patient: reports: sleeping better (no sure), more rested overall (sometimes). denies: drowsiness while driving Initial [place] Sleepiness Scale score: 11 (in 2008) Current [place] Sleepiness Scale score: 13 (08/2022) Allergies and Home Medications Known drug allergies: Yes (as listed) Drug allergies reviewed: Yes Home medication list reviewed: Yes (as listed in EMR) Allergy and home medication list: Allergies benazepril Allergy (Verified 09/04/23 14:15) unknown nefazodone [Nefazodone] Allergy (Verified 09/04/23 14:15) unknown spironolactone Allergy (Verified 09/04/23 14:15) unknown terazosin [Terazosin] Allergy (Verified 09/04/23 14:15) unknown codeine [Codeine] Adverse Reaction (Verified 09/04/23 14:15) Nausea Review of Systems Review of systems same as previous: No (Kidney disease) Physical Exam Vital signs obtained and entered by: KAILEE Arriaga MA Blood Pressure: 135/65 (LEFT ARM) Cuff size: regular Heart Rate: 59 O2 Saturation: 97 Height: 5 ft 8 in Weight: 235 lb 12.8 oz Body Mass Index: 35.8 BMI Classification: Obese Impression and Plan 1. Obstructive Sleep Apnea-Hypopnea Syndrome, severe, with good treatment compliance and good apnea control. On CPAP therapy, the patient has better sleep quality and is more rested overall. He had some concerns about using the DreamStation because of the recall and his concern about that formaldehyde. I explained to him that his DreamStation 2 was not on the recall and does not have the risks of the other machines that were recalled. He voiced understanding. Patient has significant improvement of their sleep apnea and is satisfied with current CPAP therapy. Patient's apnea severity and rationale for treatment to reduce apnea, improve sleep quality and reduce cardiovascular and cerebrovascular events was reviewed. I also reviewed the benefit of consistent device use of CPAP for hypertension, cardiac disease, arrhythmia, diabetes. 2. Obesity, unspecified. Currently patients BMI is 35.8. Obesity increases the risk of apnea, CPAP pressure requirements and overall health risks especially cardiovascular and diabetes. Thus patient is advised to lose weight. * Continue auto CPAP pressure at 11-12 cmH2O * Update supply prescription * Notify me if snoring with mask or feeling that the pressure is too much or too little * Attempt to lose weight * Call this office if any problems using CPAP * Return for follow up in 12 months, or sooner if concerns arise Counseling Topics: Weight loss health impact Prescriptions: Device supplies Follow up with Sleep Care in: 1 year Visit Type: In Office Time Spent with Patient (minutes): 21 Provider Statement: I spent 100% of the Face to Face Visit with the patient with greater than 50% spent counseling the patient and coordination of care.
[2023-09-06 15:35] VITALS: BP 135/65; O2SAT 97
== END 2023-09-06 14:04 | disposition home or self-care (01) ==
LOC: SC 14:03
PROVIDERS: ATTEND Nurse Practitioner Family
DX: G47.33 Obstructive sleep apnea (adult) (pediatric) (principal); E66.9 Obesity, unspecified; Z68.35 Body mass index [BMI] 35.0-35.9, adult
CPT/HCPCS: 99213; G0463; 99212

== ENCOUNTER 2023-11-28 11:02 | Outpatient (CLI) | payer MEDICARE, BC ==
[2023-11-28 11:18] LABS: BASOPHILS % (AUTO) 0.4 %; EOSINOPHILS # (AUTO) 0.2 10^3/uL (0.0-0.7); EOSINOPHILS % (AUTO) 4.2 %; HCT - HEMATOCRIT 34.1 % (42.0-52.0); HGB - HEMOGLOBIN 10.9 g/dL (14.0-18.0); LYMPHOCYTES # (AUTO) 1.9 10^3/uL (1.5-3.5); LYMPHOCYTES % (AUTO) 32.7 %; MEAN CORPUSCULAR HEMOGLOBIN 27.4 pg (27.0-31.0); MEAN CORPUSCULAR VOLUME 85.7 fL (80.0-94.0); MEAN PLATELET VOLUME 9.9 fL (7.4-11.4); MONOCYTES # (AUTO) 0.3 10^3/uL (0.0-1.0); MONOCYTES % (AUTO) 5.8 %; NEUTROPHILS # (AUTO) 3.2 10^3/uL (1.5-6.6); NEUTROPHILS % (AUTO) 56.5 %; PLT - PLATELET COUNT 140 10^3/uL (130-450); RED BLOOD COUNT 3.98 10^6/uL (4.70-6.10); RED CELL DISTRIBUTION WIDTH 14.7 % (12.0-15.0); WHITE BLOOD COUNT 5.7 x10^3/uL (4.8-10.8)
[2023-11-28 11:29] LABS: CREATININE,URINE 145.6 mg/dL; PROTEIN/CREATININE RATIO,URINE 0.1 (<=0.2)
[2023-11-28 11:30] LABS: CALCIUM 9.7 mg/dL (8.5-10.3); CREATININE 1.7 mg/dL (0.6-1.3); PHOSPHORUS 3.7 mg/dL (2.5-5.0); POTASSIUM 4.2 mmol/L (3.5-4.5)
== END 2023-11-28 11:03 | disposition home or self-care (01) ==
LOC: LAB 11:02
PROVIDERS: ATTEND Internal Medicine Nephrology
DX: N05.9 Unspecified nephritic syndrome with unspecified morphologic changes (principal); N25.81 Secondary hyperparathyroidism of renal origin; R80.9 Proteinuria, unspecified; D70.9 Neutropenia, unspecified; D63.1 Anemia in chronic kidney disease; E83.30 Disorder of phosphorus metabolism, unspecified
CPT/HCPCS: 36415; 80048; 82570; 83970; 84100; 84156; 85025

== ENCOUNTER 2024-01-24 14:15 | Outpatient (CLI) | payer MEDICARE, BC ==
[2024-01-24 14:28] LABS: HCT - HEMATOCRIT 35.5 % (42.0-52.0); HGB - HEMOGLOBIN 11.3 g/dL (14.0-18.0); MEAN CORPUSCULAR HGB CONC 31.8 g/dL (32.0-36.0); MEAN CORPUSCULAR VOLUME 84.7 fL (80.0-94.0); RED BLOOD COUNT 4.19 10^6/uL (4.70-6.10); RED CELL DISTRIBUTION WIDTH 14.8 % (12.0-15.0)
[2024-01-24 14:43] LABS: CALCIUM 9.6 mg/dL (8.5-10.3); CREATININE 1.7 mg/dL (0.6-1.3); POTASSIUM 4.1 mmol/L (3.5-4.5)
== END 2024-01-24 14:16 | disposition home or self-care (01) ==
LOC: LAB 14:15
PROVIDERS: ATTEND Emergency Medicine
DX: N18.31 Chronic kidney disease, stage 3a (principal)
CPT/HCPCS: 36415; 80048; 85027

== ENCOUNTER 2024-02-15 11:15 | Outpatient (CLI) | payer MEDICARE, BC ==
--- NOTE | 2024-02-17 10:39 | Ultrasound Report ---
PROCEDURE: Carotid Doppler Complete INDICATIONS: DISTURBED SENSORY PERCEPTION TECHNIQUE: Color and pulse Doppler interrogation was performed of both carotid systems, with image documentation and velocity measurements. COMPARISON: 05/01/2016. FINDINGS: Right side: Brachial blood pressure: 132/60 mm Hg. Common carotid artery peak systolic velocity: 106 cm/sec. Internal carotid artery peak systolic velocity: 87 cm/sec. Internal carotid artery end diastolic velocity: 124 cm/sec. External carotid artery peak systolic velocity: 69 cm/sec. ICA/CCA peak systolic ratio: 0.8 . Moran scale imaging description: No significant atherosclerotic plaque. Percent internal carotid artery stenosis: No hemodynamically significant stenosis. Vertebral artery: Flow direction is antegrade. Left side: Brachial blood pressure: 121/62 mm Hg. Common carotid artery peak systolic velocity: 91 cm/sec. Internal carotid artery peak systolic velocity: 93 cm/sec. Internal carotid artery end diastolic velocity: 33 cm/sec. External carotid artery peak systolic velocity: 88 cm/sec. ICA/CCA peak systolic ratio: 1.0 . Moran scale imaging description: No significant atherosclerotic plaque. Percent internal carotid artery stenosis: No hemodynamically significant stenosis. Vertebral artery: Flow direction is antegrade. IMPRESSION: 1. In the right internal carotid artery, there is no hemodynamically significant stenosis based on pe ak systolic velocity criteria. 2. In the left internal carotid artery, there is no hemodynamically significant stenosis based on pea k systolic velocity criteria. 3. Antegrade blood flow within the right vertebral artery. 4. Antegrade blood flow within the left vertebral artery. The estimate of stenosis included in the report of the imaging study was calculated using the [facility]-end orsed standards of carotid artery stenosis. Reviewed by: Annika Delgadillo MD, PhD on 02/17/2024 10:38 AM PDT Approved by: Annika Delgadillo MD, PhD on 02/17/2024 10:38 AM PDT Station ID: [id number]
== END 2024-02-15 11:16 | disposition home or self-care (01) ==
LOC: DI 11:15
PROVIDERS: ATTEND Nurse Practitioner Family
DX: R44.8 Other symptoms and signs involving general sensations and perceptions (principal); H91.93 Unspecified hearing loss, bilateral; I10 Essential (primary) hypertension
CPT/HCPCS: 93880